=== PATIENT | female | born 1980 | race Caucasian/White ===

== ENCOUNTER 2020-10-24 07:31 | Outpatient (REF) | payer BC, MEDICAID, SELFPAY | END 2020-10-24 07:32 | disposition home or self-care (01) | LOC: HO.LAB 07:31 | PROVIDERS: PCP Internal Medicine; Visit Provider Internal Medicine | DX: Z13.89 Encounter for screening for other disorder (principal) ==

== ENCOUNTER 2020-12-15 08:07 | Outpatient (REF) | payer BC, MEDICAID, SELFPAY | END 2020-12-15 08:08 | disposition home or self-care (01) | LOC: HO.LAB 08:07 | PROVIDERS: PCP Internal Medicine; Visit Provider Internal Medicine | DX: Z88.9 Allergy status to unspecified drugs, medicaments and biological substances (principal) | CPT/HCPCS: 36415; 86003 ==

== ENCOUNTER 2021-02-02 08:13 | Outpatient (REF) | payer BC, MEDICAID, SELFPAY ==
[2021-02-02 09:39] LABS: TSH reflex Free T4 0.47 uIU/mL (0.32-4.0)
== END 2021-02-02 08:14 | disposition home or self-care (01) ==
LOC: HO.LAB 08:13
PROVIDERS: PCP Internal Medicine; Visit Provider Internal Medicine
DX: E03.9 Hypothyroidism, unspecified (principal)
CPT/HCPCS: 36415; 84443

== ENCOUNTER → 2021-06-27 13:35 | Outpatient (BNVA) | payer BC, MEDICAID, SELFPAY | PROVIDERS: PCP Internal Medicine; Referring Provider Internal Medicine; Visit Provider Internal Medicine | DX: I49.9 Cardiac arrhythmia, unspecified (principal); R00.2 Palpitations | CPT/HCPCS: 93005 ==

== ENCOUNTER 2022-04-03 16:49 | Outpatient (REF) | payer BC, MEDICAID, SELFPAY ==
--- NOTE | ~2022-04-03 | XR_ITS ---
EXAMINATION: XR CERVICAL SPINE CLINICAL INFORMATION: Pain COMPARISON: Radiographs cervical spine 12/31/2016. Chest radiograph 02/05/2019. TECHNIQUE: Cervical spine is imaged in 3 views. FINDINGS: There is straightening and mild reversal cervical lordosis with mild rightward tilting. The vertebral bodies are normal in height. The odontoid appears intact. There is no vertebral compression, destructive process, or prevertebral soft tissue swelling. There is mild disc narrowing at C5-C6. No erosive change. AP view shows widening and deformity mid to lateral right clavicle, new from chest radiograph 2019, presumably related to old healed trauma. Clinically correlate. XR/XR cervical spine 3V IMPRESSION: -Straightening and mild reversal cervical lordosis with mild rightward tilting. -Mild disc narrowing C5-C6. -Widening and deformity mid to lateral right clavicle extending beyond field of view, presumably related to old healed trauma. Clinically correlate.
--- NOTE | ~2022-04-03 | XR_ITS ---
EXAMINATION: XR THORACOLUMBAR SPINE CLINICAL INFORMATION: Pain COMPARISON: Dorsal spine 03/01/2013, cervical spine 04/03/2022, chest radiograph 02/05/2019 TECHNIQUE: Dorsal spine is imaged in 3 views. FINDINGS: Normal thoracic segmentation with 12 rib-bearing thoracic vertebrae of normal height and normal thoracic kyphosis. No vertebral compression, spondylolisthesis, or destructive process. No paraspinal soft tissue swelling. Again, there is mild degenerative disc changes mid thoracic spine approximately T7-T8. No erosive change. AP view again shows probable posttraumatic changes mid to lateral right clavicle extending beyond field of view, new from chest radiograph 2019. Clinically correlate. XR/XR thoracic spine 2V IMPRESSION: -No vertebral compression, spondylolisthesis, or destructive process. -Mild degenerative disc changes mid thoracic spine. -Probable old posttraumatic changes right clavicle extending beyond field of view, new from prior radiographs 2019. Clinically correlate.
--- NOTE | ~2022-04-03 | XR_ITS ---
EXAMINATION: XR SACRUM AND COCCYX CLINICAL INFORMATION: Low back pain COMPARISON: Lumbar radiographs 04/03/2022 TECHNIQUE: The sacrum and coccyx are imaged together in a total of 4 views to include both areas. FINDINGS: No fracture or destructive process. No diastases SI joints or pubis. Bony mineralization appears normal. No periostitis. No presacral soft tissue swelling appreciated. There is an IUD overlying the central pelvis. XR/XR sacrum coccyx min 2V IMPRESSION: Unremarkable examination.
--- NOTE | ~2022-04-03 | XR_ITS ---
EXAMINATION: XR LUMBOSACRAL SPINE CLINICAL INFORMATION: Low back pain COMPARISON: Dorsal spine 04/03/2022 and 03/01/2013 TECHNIQUE: Three views of the lumbosacral spine. FINDINGS: Normal lumbar segmentation with 5 nonrib-bearing lumbar vertebrae of normal height and normal lumbar lordosis. There is borderline loss of height superior endplate T12 with some degenerative changes T11-T12. No vertebral compression fracture, destructive process, or paraspinal soft tissue swelling. There is no lumbar disc narrowing or erosive changes. Borderline multilevel anterior vertebral. No spondylolisthesis. The SI joints and visualized sacrum are unremarkable. IUD overlying central pelvis. There are surgical clips right upper quadrant abdomen likely from prior cholecystectomy. XR/XR lumbar spine 2-3V IMPRESSION: -No lumbar vertebral compression, spondylolisthesis, or focal disc narrowing. -Borderline loss of height superior plate of T12 with degenerative disc changes T11-T12.
== END 2022-04-03 16:50 | disposition home or self-care (01) ==
LOC: HO.XRAY 16:49
PROVIDERS: PCP Internal Medicine; Visit Provider Physician Assistant
DX: M53.3 Sacrococcygeal disorders, not elsewhere classified (principal); M54.2 Cervicalgia; M54.6 Pain in thoracic spine; M54.50 Low back pain, unspecified
CPT/HCPCS: 72040; 72070; 72100; 72220

== ENCOUNTER → 2022-10-15 15:05 | Outpatient (BNVA) | payer BC, MEDICAID, SELFPAY | PROVIDERS: PCP Internal Medicine; Visit Provider Physician Assistant | DX: Z13.89 Encounter for screening for other disorder (principal) ==

== ENCOUNTER 2022-10-21 12:19 | Outpatient (REF) | payer BC, MEDICAID, SELFPAY ==
[2022-10-21 14:09] LABS: Appearance Urine Cloudy; Color Urine Yellow; Glucose Urine UA Negative (Negative); Leukocyte Esterase Urine Negative (Negative); Nitrite Urine Negative (Negative); PH 6.5 (5.0-9.0); Specific Gravity - Urine 1.015 (1.005-1.025); Urine Blood Negative (Negative); Urine Ketones Trace mg/dL (Negative); Urine Protein Negative (Neg-Trace)
[2022-10-21 14:11] LABS: MANUAL DIFF FLAG NO
[2022-10-21 14:24] LABS: Basophils Percent Auto 0.6 % (0-2); Eosinophils Absolute Auto 0.2 X10*3/uL (0.0-0.4); Eosinophils Percent Auto 2.6 % (0-4); Hematocrit 39.1 % (37.0-47.0); Imm Gran Abs Auto 0.02 X10*3/uL (0.00-0.03); Imm Gran Pct Auto 0.3 % (0.0-0.4); Lymphocytes Absolute Auto 1.9 X10*3/uL (1.2-4.9); Mean Corpuscular HGB Conc 33.2 g/dl (31.0-35.0); Mean Corpuscular Hemoglobin 28.6 pg (27.0-33.0); Mean Corpuscular Volume 85.9 fL (80.0-98.0); Mean Platelet Volume 10.3 fL (9.4-12.3); Monocytes Absolute Auto 0.5 X10*3/uL (0.1-1.2); Monocytes Percent Auto 8.1 % (2-11); Neutrophils Absolute Auto 3.7 x10*3/uL (2.0-8.3); Neutrophils Percent Auto 58.4 % (45-73); Platelet Count 247 X10*3/uL (160-400); Red Blood Count 4.55 X10*6/uL (4.20-5.50); Red Cell Distribution Width 12.6 % (11.0-16.0); White Blood Count 6.3 X10*3/uL (4.8-10.8)
[2022-10-21 14:52] LABS: Alanine Aminotransferase 13 U/L (0-31); Albumin Level 4.4 g/dL (3.5-5.0); Alkaline Phosphatase 36 U/L (39-117); Anion Gap 12 (12-20); Aspartate Amino Transferase 17 U/L (5-31); Bilirubin Total 1.4 mg/dL (0.0-1.0); Blood Urea Nitrogen 13 mg/dL (9-16); C Reactive Protein < 0.10 mg/dL (< or = 0.50); Calcium 9.4 mg/dL (8.4-10.2); Carbon Dioxide 25 mmol/L (22-29); Chloride 107 mmol/L (96-108); Cholesterol 177 mg/dL; Estimated Glomerular Filt Rate > 60; Glucose Fasting 84 mg/dL (60-99); Glucose Random 84 mg/dL (60-115); HDL Cholesterol 62 mg/dL; LDL Cholesterol Calculated 103 mg/dl; Sodium 140 mmol/L (135-145); Total Protein 6.9 g/dL (6.5-8.0); Triglycerides 62 mg/dL
[2022-10-21 15:07] LABS: Free T4 (Free Thyroxine) 1.27 ng/dL (0.71-1.85); Thyroid Stimulating Hormone 0.44 uIU/mL (0.32-4.0); Vitamin D 25-OH Total 33.5 ng/mL (>30)
[2022-10-21 15:27] LABS: Erythrocyte Sedimentation Rate 5 MM/HR (0-20)
[2022-10-24 12:39] LABS: Transglutaminase IgA <1.0 U/mL
[2022-10-25 14:54] LABS: Endomysial IgA Antibody Negative (Negative)
[2022-10-27 15:29] LABS: Vitamin D 25-OH, D2 <4 ng/mL; Vitamin D 25-OH, D3 34 ng/mL; Vitamin D 25-OH, Total 34 ng/mL (30-100)
== END 2022-10-21 12:20 | disposition home or self-care (01) ==
LOC: HO.WFDLDS 12:19
PROVIDERS: Internal Medicine; Visit Provider Physician Assistant
DX: Z00.00 Encounter for general adult medical examination without abnormal findings (principal); R30.0 Dysuria; E78.00 Pure hypercholesterolemia, unspecified; E03.9 Hypothyroidism, unspecified; K58.0 Irritable bowel syndrome with diarrhea; K58.1 Irritable bowel syndrome with constipation; E55.9 Vitamin D deficiency, unspecified; K59.09 Other constipation
CPT/HCPCS: 36415; 80053; 80061; 81003; 82306; 84439; 84443; 85025; 85652; 86140; 86231; 86364

== ENCOUNTER 2022-10-22 12:18 | Outpatient (REF) | payer BC, MEDICAID, SELFPAY | END 2022-10-22 12:19 | disposition home or self-care (01) | LOC: HO.WFDLNP 12:18 | PROVIDERS: Visit Provider Physician Assistant | DX: Z13.89 Encounter for screening for other disorder (principal) | CPT/HCPCS: 83993; 87493; 87507 ==

== ENCOUNTER 2023-08-05 17:07 | Outpatient (AMB) | payer BC, MEDICAID, SELFPAY ==
[2023-08-05 17:10] VITALS: BP 116/72; PULSE 83; O2SAT 98; BMI 23.4
--- NOTE | 2023-08-05 17:10 | MHC.PC.OV ---
Vital Signs 08/05/23 17:10 Height 5 ft 8 in Weight 154 lb BMI 23.4 BP 116/72 Blood Pressure Location Lt brachial Position Sitting Pulse 83 Pulse Source Pulse Oximeter Pulse Oximetry (%) 98 Oxygen Delivery Method Room Air Intake Visit Reasons: pe Airplane Flight Attendant Required: No Accompanied by: Self / Same As Patient Allergies adhesive tape [ADHESIVE TAPE] Allergy (Severe, Verified 08/05/23 17:19) HIVES latex Allergy (Severe, Verified 08/05/23 17:19) throat swelling/hives prednisone Adverse Reaction (Severe, Verified 08/05/23 17:19) psychosis, extreme aggitation pumpkin Adverse Reaction (Unknown, Verified 08/05/23 17:19) unknown Medication List - Last Reconciled 08/05/23 by Ron Irving MD bisacodyl (Dulcolax (bisacodyl)) 10 mg (2 x 5 mg) PO ONCE 1 day bupropion HCl 200 mg PO BID levothyroxine 50 mcg PO DAILY 90 days phentermine 37.5 mg PO DAILY 30 days polyethylene glycol 3350 (Miralax) 238 grams PO ONCE 1 day topiramate 25 mg PO BEDTIME 30 days Tobacco use date assessed: 08/05/23 Dental Screening Dental Screen Date: 08/05/23 Did you have a dental visit in the last 12 months?: Yes Did you have a dental problem in the last 6 months where you did not have access to dental care?: No Was dental information given to patient?: Patient has dentist HPI pe HPI Details Patient comes in today for her annual physical examination States that she currently feels okay Is still working from home but recently joined a work out program where she has a treadmill under her work desk and she can do her work out routine while she is working (from home) at her desk at the same time She has been able to lose a lot of weight as well since her last visit with the Rx for Topiramate and Adipex that we have been prescribing for her - states that she does not take these on an everyday basis She denies any headaches or dizziness Denies any chest pains, no SOB No nausea/vomiting; still has occasional cramping pain most often over her lower abdomen that are often relieved after bowel movements No change in bowel habits noted - still has on and off diarrhea/loose stools that occur mostly after she eats in the morning States that she has tried to see if she can isolate anything in particular that she was eating or drinking, even to the point wherein she skipped her morning coffee for a while to see if it will make a difference (but it did not) Denies any acute urinary symptoms Would also like to request for a referral to dermatology to help her check out a few lesions on her face between her right eye and her nose Was not able to get her previously ordered follow up labs done prior to her appointment today States that she was seen by GI a few months ago this spring and was advised that they were behind scheduling but she will be contacted as soon as she is scheduled for her colonoscopy but she has not yet heard back from GI so far States that she last had her pap smear and gynecology exam done last year in May 2022 and recalls being told they she will just need to get those rechecked every 2 to 3 years Her last mammogram was done at [facility] last July 2022 (08/20/22) [facility] Medical History (Updated 08/06/23 @ 03:54 by Ron Irving MD) Anxiety and depression Elevated bilirubin Overweight (BMI 25.0-29.9) Irritable bowel syndrome (IBS) Mass of right inguinal region Sleep disorder Depression Vitamin D deficiency Pure hypercholesterolemia Acquired hypothyroidism Systemic lupus erythematosus Surgical History History of pleomorphic adenoma of salivary gland History of sleeve gastrectomy History of laparoscopic cholecystectomy History of section Family History Father Hypertension Mother Medical history unknown Paternal Grandmother Cancer Paternal Uncle Cancer Social History Housing: House Alcohol intake: never Patient Tobacco Use Status: Former Tobacco user Tobacco use type: Cigarette e-Cigarette/Vaping Use: Currently Using Second Hand Smoke Exposure: No service: No Current occupational status: employed Current occupational exposures/hazards: No Cognitive needs: No Hearing needs: No Vision needs: No Questionnaire PHQ-9 Over the last 2 weeks, how often have you been bothered by any of the following problems? 1. Little interest or pleasure in doing things: not at all 2. Feeling down, depressed, or hopeless: not at all 3. Trouble falling or staying asleep, or sleeping too much: not at all 4. Feeling tired or having little energy: not at all 5. Poor appetite or overeating: not at all 6. Feeling bad about yourself - or that you are a failure or have let yourself or your family down: not at all 7. Trouble concentrating on things, such as reading the newspaper or watching television: not at all 8. Moving or speaking so slowly that other people could have noticed. Or the opposite - being so fidgety or restless that you have been moving around a lot more than usual: not at all 9. Thoughts that you would be better off or of hurting yourself in some way: not at all Total score: 0 Depression Screening Interpretation: Negative Depression Screening Done: Yes [id number] - PHQ-9 Billing: Yes Source: Developed by Drs. Channing Zapata, Hina Clayton, Noe Molina and colleagues, with an educational antoine from [employer]. Thrive Questionnaire Date Thrive assessed: 08/05/23 I am a: Patient What is your living situation today?: I have a steady place to live Within the past 12 months, did the food you bought not last and you didn't have the money to get more?: Never true Within the past 12 months, did you worry whether your food would run out before you got money to buy more?: Never true Do you have trouble paying for medicines?: No Do you have trouble getting transportation to medical appointments?: No Do you have trouble paying your heating and electricity bill?: No Do you have trouble taking care of your child, family member or friend?: No Do you have trouble with day-to-day activities such as bathing, preparing meals, shopping, managing finances, etc.?: No Are you currently unemployed and looking for a job?: No Are you interested in more education?: No Please select the resources that you would like help with: None Currently or been in a relationship where the following occur: no concerns reported AUDIT C Alcohol Use Questionnaire (AUDIT-C) 1. How often do you have a drink containing alcohol?: Monthly or less 2. How many drinks containing alcohol do you have on a typical day when you are drinking?: 1 or 2 Total Score: 1 Score Reviewed/Action Taken: Yes MONSERRAT-7 AMB Questionnaire MONSERRAT-7 Date MONSERRAT - 7 assessed: 08/05/23 Feeling nervous, anxious, or on edge: 0 = Not at all Not being able to stop or control worryin = Not at all Worrying too much about different things: 0 = Not at all Trouble relaxin = Not at all Being so restless that it is hard to sit still: 0 = Not at all Becoming easily annoyed or irritable: 0 = Not at all Feeling afraid as if something awful might happen: 0 = Not at all Total MONSERRAT-7 score (0-4 normal; 5-9 mild; 10-14 moderate; 15-21 severe): 0 Source: Developed by Drs. Channing Zapata, Hina Clayton, Noe Molina and colleagues, with an educational antoine from [employer]. Review of Systems Const Denies chills, Denies fatigue, Denies fever(s), Denies headache(s) and Denies malaise Eyes Denies blurry vision, Denies change in vision, Denies irritation and Denies itchy eyes ENT Denies dysphagia, Denies dizziness, Denies otalgia, Denies headache(s), Reports neck pain (on and off) and Denies odynophagia Card Denies chest pain, Denies rapid heart rate, Denies irregular heart rhythm, Denies palpitations and Denies dyspnea Resp Denies chest congestion, Denies cough, Denies dyspnea and Denies wheezing GI Reports abdominal pain (intermittent cramping pain due to her IBS), Denies bloating, Denies constipation, Denies dysphagia, Denies heartburn, Reports diarrhea (on and off - due to IBS), Reports loose stools (often - due to IBS and cholecystectomy), Denies nausea, Denies odynophagia and Denies vomiting Denies hematuria, Denies urinary frequency, Denies dysuria, Denies urinary incontinence and Denies urinary urgency Musc Reports back pain (on and off), Reports arthralgias (on and off - (+) lupus), Denies joint swelling and Reports neck pain (on and off) Skin/Breast Denies breast pain, Denies breast mass, Denies change in pigmentation, Reports lesions (few scattered lesions between her right eye and nose), Denies rash and Denies unusual bruising Neuro Denies dizziness, Denies headache(s) and Denies paresthesias Psych Denies depression and Reports difficulty concentrating Endo Denies fatigue and Denies palpitations Arron/Lymph Denies easy bruising Aller/Immun Denies itchy eyes and Denies wheezing Physical exam (Primary Care) Vital Signs: Last Vital Signs Pulse 83 08/05/23 17:10 BP 116/72 08/05/23 17:10 Pulse Ox 98 08/05/23 17:10 Oxygen Delivery Method Room Air 08/05/23 17:10 BMI result Body Mass Index 23.4 Tobacco/Smoking Status: Tobacco use Status Tobacco use date assessed 08/05/23 08/05/23 17:15 Patient Tobacco Use Status Former Tobacco user 08/05/23 17:15 Tobacco use type Cigarette 08/05/23 17:15 e-Cigarette/Vaping Use Currently Using 08/05/23 17:15 PHQ-9: PHQ-9 Score PHQ-9: Total score 0 08/05/23 17:24 Depression Screening Interpretation: Negative Thrive Assessment: Date of Thrive Assessment Date Thrive assessed 08/05/23 08/05/23 17:15 Currently or been in a relationship where the following occur: no concerns reported Const General: no acute distress, alert and awake Orientation/consciousness: patient oriented x3 HENMT Head: Yes normocephalic and Yes atraumatic Ears: external ears normal, TM's normal bilaterally and EAC's normal General nose exam: No nasal discharge present Face and sinus: Yes normal facial exam and Yes sinuses nontender Teeth and gingiva: dentition normal Throat: Yes posterior oropharynx normal and Yes tonsils normal (no TP congestion) Eyes Eyelids: Yes eyelids normal Conjunctivae: conjunctivae normal Pupils: Equal, round and reactive pupils present EOM: EOMs intact bilaterally Neck Neck: Yes no lymphadenopathy and Yes supple Thyroid: Thyroid normal Resp Auscultation: clear to auscultation bilaterally, no rales and no wheezes Cardio Rate: regular rate Rhythm: regular rhythm Heart sounds: no murmurs GI Palpation (GI): Soft to palpation, nontender and No hepatosplenomegaly present Auscultation: normal bowel sounds General: Yes no CVA tenderness Back/Spine/Pelvis Back: no CVA tenderness Cervical Spine: Cervical spine tenderness (mild) Thoracic/Lumbar Spine: lumbar spinal tenderness (mild) Skin Lesions: lesion noted (few slightly raised lesions between the right eye and the nose) Rashes: no rashes Neuro General: patient oriented x3, moves all extremities, no focal motor deficits and CN's II-XI intact bilaterally Cranial nerves: Yes Equal, round and reactive pupils present Cognition (Neuro): normal cognition Gait exam (Neuro): Normal gait present Extrem General: Yes no clubbing, cyanosis or edema Assessment and Plan Assessment & Plan (1) Annual physical exam: Code(s): Z00.00 - Encounter for general adult medical examination without abnormal findings Plan: Check labs SINGH - she can just use her previous orders (updated) for her lab draw She is encouraged to check back with GI [facility] about her screening colonoscopy being scheduled - was reportedly advised months ago that they will contact her again to schedule her for the procedure but she has yet to hear from them again She is up-to-date with her annual mammogram and gynecology exam/pap smear (2) Systemic lupus erythematosus: Code(s): M32.9 - Systemic lupus erythematosus, unspecified Qualifiers: Systemic lupus erythematosus type: unspecified Systemic lupus erythematosus organ involvement: unspecified Qualified Code(s): M32.9 - Systemic lupus erythematosus, unspecified Plan: Patient's lupus remains dormant and per rheumatology, no intervention is indicated at present? Follow-up with rheumatology (Dr. Oliver in [place]) as scheduled Patient continues to work remotely from home, which she states has helped her a lot in terms of her symptoms (3) Acquired hypothyroidism: Code(s): E03.9 - Hypothyroidism, unspecified Plan: TFTs done back in September 2022 came out normal; will have her recheck her TFTs for follow up Continue Levothyroxine 50 mcg QD (4) Pure hypercholesterolemia: Code(s): E78.00 - Pure hypercholesterolemia, unspecified Plan: Reinforced low cholesterol diet Will recheck her fasting lipids for follow up (5) Irritable bowel syndrome (IBS): Comment: Several loose stools daily abdominal cramping-diagnosed IBS however needs further evaluation to rule out underlying causes to include IBD. Will get labs stool studies for further eval Code(s): K58.9 - Irritable bowel syndrome without diarrhea Qualifiers: Irritable bowel syndrome type: unspecified Qualified Code(s): K58.9 - Irritable bowel syndrome without diarrhea Plan: Still has recurrent/frequent loose stools although this is also partly due to cholecystectomy years ago Patient reminded that her diet and emotional state (anxiety) can have a lot to do with her symptoms Work ups done for celiac disease in the past came out negative Follow up with GI as scheduled States that she was supposed to be scheduled for a colonoscopy soon but she has not yet heard back from GI regarding this - is encouraged to try contacting them as soon as she can to inquire about this (6) Vitamin D deficiency: Code(s): E55.9 - Vitamin D deficiency, unspecified Plan: Continue OTC Vitamin D supplement - recommend at least 2000 units (50 mcg) QD (7) Facial skin lesion: Code(s): L98.9 - Disorder of the skin and subcutaneous tissue, unspecified Plan: (+) small and slightly raised lesions mostly in between her right eye and her nose Per request, will refer her to dermatology for further evaluation and management (8) Attention deficit: Code(s): R41.840 - Attention and concentration deficit Plan: Patient reportedly noticed some improvement in her concentration when she takes Phentermine for weight loss Recalls being diagnosed with ADD or ADHD when she was younger (is not sure if this was ever official) [facility] and management and to help assess for any concentration deficits - we have not yet received any report from the [facility] so far regarding this (9) Anxiety and depression: Code(s): F41.9 - Anxiety disorder, unspecified; F32.A - Depression, unspecified Plan: Continue Bupropion 200 mg BID - patient asked to be started back on this a couple of months ago in May 2023 due to increasing anxiety and depression and states that she is currently again doing better since she was started back on her Rx Follow up with psychiatry as scheduled (10) Overweight (BMI 25.0-29.9): Comment: S/P gastric sleeve by Dr. Tran in 2018 Code(s): E66.3 - Overweight Plan: Patient has been able to lose a lot of weight over the past 6 months on both Phentermine 37.5 mg Q AM as needed and Topiramate 25 mg Q HS and she is currently no longer overweight, categorically speaking Is advised that she should monitor her weight closely and should not continue on her current weight loss Rx if she continues to lose weight and her weight drops under 140 pounds Plan Follow up in 6 months Orders: Orders Thyroid Stimulating Hormone 08/05/23 E03.9 - Hypothyroidism, unspecified Free T4 (Free Thyroxine) 08/05/23 E03.9 - Hypothyroidism, unspecified Referrals Dermatology Referral L98.9 - Disorder of the skin and subcutaneous tissue, unspecified Coding Level of Care Code Est Pt Prev Care 40-64y(24064) Diagnoses Annual physical exam Z00.00 Systemic lupus erythematosus, unspecified SLE type, unspecified organ involvement status M32.9 Systemic lupus erythematosus type: unspecified Systemic lupus erythematosus organ involvement: unspecified Acquired hypothyroidism E03.9 Pure hypercholesterolemia E78.00 Irritable bowel syndrome, unspecified type K58.9 Irritable bowel syndrome type: unspecified Vitamin D deficiency E55.9 Facial skin lesion L98.9 Attention deficit R41.840 Anxiety and depression F41.9; F32.A Overweight (BMI 25.0-29.9) E66.3
== END 2023-08-05 17:35 | disposition home or self-care (01) ==
LOC: HO.HMGH 17:07
PROVIDERS: PCP Internal Medicine; Visit Provider Internal Medicine
DX: Z00.00 Encounter for general adult medical examination without abnormal findings (principal); M32.9 Systemic lupus erythematosus, unspecified; E03.9 Hypothyroidism, unspecified; E78.00 Pure hypercholesterolemia, unspecified; K58.9 Irritable bowel syndrome, unspecified; E55.9 Vitamin D deficiency, unspecified; L98.9 Disorder of the skin and subcutaneous tissue, unspecified; R41.840 Attention and concentration deficit; F41.9 Anxiety disorder, unspecified; F32.A Depression, unspecified; E66.3 Overweight
CPT/HCPCS: 99396

== ENCOUNTER 2023-12-17 10:26 | Outpatient (AMB) | payer BC, SELFPAY ==
--- NOTE | 2023-12-17 10:28 | A.OFFPC_ITS ---
Intake Visit Reasons: Walk In 12/03 influenza/ ear drum Intake Note: Telehealth follow-up visit, the patient reports a prolonged struggle with influenza A, lasting for 16 days along with associated flu symptoms. On December 08, they received a re-evaluation and were diagnosed with a double ear infection. They are presently receiving treatment with amoxicillin. However, the patient persists in experiencing coughing and suspects the possibility of a perforated eardrum. Special Officer Required: No Information Interpreted: non-clinical & clinical Resist Coater Developer: Not Required per policy Accompanied by: Self / Same As Patient Allergies adhesive tape [ADHESIVE TAPE] Allergy (Severe, Verified 12/17/23 11:07) HIVES latex Allergy (Severe, Verified 12/17/23 11:07) throat swelling/hives prednisone Adverse Reaction (Severe, Verified 12/17/23 11:07) psychosis, extreme aggitation pumpkin Adverse Reaction (Unknown, Verified 12/17/23 11:07) unknown Medication List - Last Reconciled 12/17/23 by Ron Irving MD bisacodyl (Dulcolax (bisacodyl)) 10 mg (2 x 5 mg) PO ONCE 1 day bupropion HCl SR 200 mg PO BID levothyroxine 50 mcg PO DAILY 90 days phentermine 37.5 mg PO DAILY 30 days polyethylene glycol 3350 (Miralax) 238 grams PO ONCE 1 day topiramate 25 mg PO BEDTIME 30 days Tobacco use date assessed: 12/17/23 Dental Screening Dental Screen Date: 12/17/23 Did you have a dental visit in the last 12 months?: Yes Did you have a dental problem in the last 6 months where you did not have access to dental care?: No Was dental information given to patient?: Patient has dentist HPI Walk In 12/03 influenza/ ear drum HPI Details Patient's follow-up visit / consultation today is done over the phone - this is a Telehealth visit Patient's current medications have been reviewed and verified with patient and / or caregiver / proxy and have been updated accordingly in the medication list States that she tested positive for influenza A about 16 days ago when she went to a local urgent care center ([facility] in [place]) for increasing cough and congestion over a couple of days States that she has been dealing with increased and lingering cough and congestion / flu-like symptoms since Relates that she went back to the walk-in clinic last week on 12/09/2023 for reevaluation as her ear felt blocked up then and she was then diagnosed with bilateral ear infection (otitis) and was started on Amoxicillin 875 mg BID x 10 days, which she is currently still on and finishing up States that she is currently feeling a lot better although she still has recurrent cough and experiencing some chest congestion and her ear still feels blocked up Recalls being advised at the walk-in clinic that she does not have any perforated eardrum but she is wondering if this is correct as her ear still feels blocked up and she can hardly hear out of it She denies any fever or sore throat at present Denies any headaches or dizziness Denies any chest pains States that she still has some mild/lingering chest congestion and still has on and off coughing but she denies any SOB No nausea/vomiting, no abdominal pain No change in bowel habits noted [facility] Medical History Anxiety and depression Elevated bilirubin Overweight (BMI 25.0-29.9) Irritable bowel syndrome (IBS) Mass of right inguinal region Sleep disorder Depression Vitamin D deficiency Pure hypercholesterolemia Acquired hypothyroidism Systemic lupus erythematosus Surgical History History of pleomorphic adenoma of salivary gland History of sleeve gastrectomy History of laparoscopic cholecystectomy History of section Family History Father Hypertension Mother Medical history unknown Paternal Grandmother Cancer Paternal Uncle Cancer Social History Housing: House Alcohol intake: never Patient Tobacco Use Status: Former Tobacco user Tobacco use type: Cigarette e-Cigarette/Vaping Use: Currently Using Second Hand Smoke Exposure: No service: No Current occupational status: employed Current occupational exposures/hazards: No Cognitive needs: No Hearing needs: No Vision needs: No Questionnaire PHQ-9 Over the last 2 weeks, how often have you been bothered by any of the following problems? 1. Little interest or pleasure in doing things: not at all 2. Feeling down, depressed, or hopeless: not at all 3. Trouble falling or staying asleep, or sleeping too much: not at all 4. Feeling tired or having little energy: not at all 5. Poor appetite or overeating: not at all 6. Feeling bad about yourself - or that you are a failure or have let yourself or your family down: not at all 7. Trouble concentrating on things, such as reading the newspaper or watching television: not at all 8. Moving or speaking so slowly that other people could have noticed. Or the opposite - being so fidgety or restless that you have been moving around a lot more than usual: not at all 9. Thoughts that you would be better off or of hurting yourself in some way: not at all Total score: 0 Depression Screening Interpretation: Negative Depression Screening Done: Yes 11423 - PHQ-9 Billing: Yes Source: Developed by Drs. Channing Zapata, Hina Clayton, Noe Molina and colleagues, with an educational antoine from [employer]. Thrive Questionnaire Date Thrive assessed: 12/17/23 I am a: Patient What is your living situation today?: I have a steady place to live Within the past 12 months, did the food you bought not last and you didn't have the money to get more?: Never true Within the past 12 months, did you worry whether your food would run out before you got money to buy more?: Never true Do you have trouble paying for medicines?: No Do you have trouble getting transportation to medical appointments?: No Do you have trouble paying your heating and electricity bill?: No Do you have trouble taking care of your child, family member or friend?: No Do you have trouble with day-to-day activities such as bathing, preparing meals, shopping, managing finances, etc.?: No Are you currently unemployed and looking for a job?: No Are you interested in more education?: No Please select the resources that you would like help with: None Currently or been in a relationship where the following occur: no concerns reported THRIVE Score: 0 AUDIT C Alcohol Use Questionnaire (AUDIT-C) 1. How often do you have a drink containing alcohol?: Monthly or less 2. How many drinks containing alcohol do you have on a typical day when you are drinking?: 1 or 2 3. How often do you have six or more drinks on one occasion?: Never Total Score: 1 Score Reviewed/Action Taken: Yes MONSERRAT-7 AMB Questionnaire MONSERRAT-7 Date MONSERRAT - 7 assessed: 12/17/23 Feeling nervous, anxious, or on edge: 0 = Not at all Not being able to stop or control worryin = Not at all Worrying too much about different things: 0 = Not at all Trouble relaxin = Not at all Being so restless that it is hard to sit still: 0 = Not at all Becoming easily annoyed or irritable: 0 = Not at all Feeling afraid as if something awful might happen: 0 = Not at all Total MONSERRAT-7 score (0-4 normal; 5-9 mild; 10-14 moderate; 15-21 severe): 0 Source: Developed by Drs. Channing Zapata, Hina Clayton, Noe Molina and colleagues, with an educational antoine from [employer]. MONSERRAT-7 Assessment Billing MONSERRAT-7 Assessment Tool: MONSERRAT-7 Assessment 67137 Review of Systems Const Denies chills, Reports fatigue, Denies fever(s) and Denies headache(s) ENT Denies dysphagia, Denies dizziness, Denies otalgia (but ear still feels blocked up), Denies headache(s), Reports nasal congestion (mild), Denies neck pain, Denies odynophagia, Denies sinus pain and Denies sore throat Card Denies chest pain, Denies palpitations and Denies dyspnea Resp Reports chest congestion (mild), Reports cough (on and off), Denies dyspnea and Denies wheezing GI Denies abdominal pain, Denies constipation, Denies dysphagia, Denies heartburn, Denies diarrhea, Denies nausea, Denies odynophagia and Denies vomiting Denies nocturia, Denies dysuria and Denies urinary urgency Musc Denies neck pain Skin/Breast Denies rash Neuro Denies dizziness and Denies headache(s) Endo Reports fatigue and Denies palpitations Aller/Immun Denies wheezing Physical exam (Primary Care) Vital Signs: Physical examination is not performed as visit / consultation today is done over the phone - Telehealth visit All physical findings indicated here, if present, are as per patient's and / or caregivers / proxy's report Tobacco/Smoking Status: Tobacco use Status Tobacco use date assessed 12/17/23 12/17/23 10:34 Patient Tobacco Use Status Former Tobacco user 12/17/23 10:34 Tobacco use type Cigarette 12/17/23 10:34 e-Cigarette/Vaping Use Currently Using 12/17/23 10:34 PHQ-9: PHQ-9 Score PHQ-9: Total score 0 12/17/23 10:34 Depression Screening Interpretation: Negative Thrive Assessment: Date of Thrive Assessment Date Thrive assessed 12/17/23 12/17/23 10:34 Currently or been in a relationship where the following occur: no concerns reported Telehealth Telehealth Telehealth Platform: Telephone Location of provider rendering services: practice address Location of patient: address on file Patient Identification confirmed using: Name, : Yes Telehealth method: voice only Patient verbally consented to treatment: Yes Patient verbally consented to billing insurance company: Yes Patient informed of any privacy concerns related to visit: Yes Minutes spent on Phone/Video with Pt.: 16 Assessment and Plan Assessment & Plan (1) Otitis: Code(s): H66.90 - Otitis media, unspecified, unspecified ear Qualifiers: Laterality: bilateral Qualified Code(s): H66.93 - Otitis media, unspecified, bilateral (2) Respiratory tract infection: Code(s): J98.8 - Other specified respiratory disorders Plan Patient reports testing positive for Influenza A about 16 days ago and states that most of her respiratory symptoms have been gradually clearing up although she presently still has some lingering cough and congestion - takes OTC Delsym and Benadryl PRN with relief of symptoms She is currently finishing up her prescribed Amoxicillin 875 mg BID x 10 days and states that she has a couple of days of the antibiotics left but is concerned that her ear still feels blocked up and that she may have a perforated TM Have advised patient that the walk-in clinic have told her that she does not have any perforated eardrum when she was last checked out so she most likely does NOT have TM perforation and her ear sensation (congestion) is likely a result of her ongoing ear infection and the presence of fluid in her ear, which may take a while to clear up even after she finishes her Abx Tx Will extend her Abx for another 4 days to complete a full 2 weeks of Tx and advised that as long as she is feeling better overall and she does not think her symptoms are getting worse, the ear symptoms (as mentioned above) can take longer to clear up completely Follow up as scheduled in January 2024 Medications: New amoxicillin Continue antibiotics x 4 MORE DAYS 875 mg PO BID 4 days 8 tabs 0RF Coding Level of Care Code Tele Est Pt Level 3 (99960) Diagnoses Otitis of both ears H66.93 Laterality: bilateral Respiratory tract infection J98.8 Additional Codes MONSERRAT-7 Assessment Billing - MONSERRAT-7 Assessment Tool: MONSERRAT-7 Assessment 42568 ([id number])
== END 2023-12-17 11:25 | disposition home or self-care (01) ==
LOC: HO.HMGH 10:26
PROVIDERS: PCP Internal Medicine; Visit Provider Internal Medicine
DX: J98.8 Other specified respiratory disorders (principal); H66.93 Otitis media, unspecified, bilateral
CPT/HCPCS: 99442

== ENCOUNTER 2024-02-10 16:52 | Outpatient (AMB) | payer BC, SELFPAY ==
[2024-02-10 16:54] VITALS: BP 114/72; PULSE 70; O2SAT 98; BMI 25.2
--- NOTE | 2024-02-10 16:54 | A.OFFPC_ITS ---
Vital Signs 02/10/24 16:54 Height 5 ft 8 in Weight 166 lb 0.4 oz BMI 25.2 BP 114/72 Blood Pressure Location Lt brachial Position Sitting Pulse 70 Pulse Source Pulse Oximeter Pulse Oximetry (%) 98 Oxygen Delivery Method Room Air Intake Visit Reasons: 6 month f/u Network Management Specialist Required: No Allergies adhesive tape [ADHESIVE TAPE] Allergy (Severe, Verified 02/10/24 17:24) HIVES latex Allergy (Severe, Verified 02/10/24 17:24) throat swelling/hives prednisone Adverse Reaction (Severe, Verified 02/10/24 17:24) psychosis, extreme aggitation pumpkin Adverse Reaction (Unknown, Verified 02/10/24 17:24) unknown Medication List - Last Reconciled 02/10/24 by Ron Irving MD bisacodyl (Dulcolax (bisacodyl)) 10 mg (2 x 5 mg) PO ONCE 1 day levothyroxine 50 mcg PO DAILY 90 days phentermine 37.5 mg PO DAILY 30 days polyethylene glycol 3350 (Miralax) 238 grams PO ONCE 1 day topiramate 25 mg PO BEDTIME 30 days Tobacco use date assessed: 12/17/23 Dental Screening Dental Screen Date: 12/17/23 Did you have a dental visit in the last 12 months?: Yes Did you have a dental problem in the last 6 months where you did not have access to dental care?: No Was dental information given to patient?: Patient has dentist HPI 6 month f/u HPI Details Patient comes in today for her follow up visit States that she feels okay Is happy that she has been able to continue working from home Relates that she had a bout of ear infection and respiratory infection a couple of months ago and she thinks she tested positive for RSV States that her symptoms have mostly cleared up but she still feels that there is some fluid lingering in her left ear as she can feel it when she is turning her head or when she lies down on her left side Is wondering if this is because her ear infection did not get cleared up completely with the antibiotics that she took and if her ear infection is going to come back She denies any headaches or dizziness; denies any fever or sore throat lately Denies any chest pains, no SOB No nausea/vomiting, no abdominal pain No change in bowel habits noted Adds that she has been experiencing a lot of hot flashes lately - is wondering if these are indicating that she is going into menopause soon She had her follow up labs done at [facility] few months ago and would like to go over the results of her labs back then [facility] Medical History Anxiety and depression Elevated bilirubin Overweight (BMI 25.0-29.9) Irritable bowel syndrome (IBS) Mass of right inguinal region Sleep disorder Depression Vitamin D deficiency Pure hypercholesterolemia Acquired hypothyroidism Systemic lupus erythematosus Surgical History History of pleomorphic adenoma of salivary gland History of sleeve gastrectomy History of laparoscopic cholecystectomy History of section Family History Father Hypertension Mother Medical history unknown Paternal Grandmother Cancer Paternal Uncle Cancer Social History Housing: House Alcohol intake: never Patient Tobacco Use Status: Former Tobacco user Tobacco use type: Cigarette e-Cigarette/Vaping Use: Currently Using Second Hand Smoke Exposure: No service: No Current occupational status: employed Current occupational exposures/hazards: No Cognitive needs: No Hearing needs: No Vision needs: No Questionnaire Thrive Questionnaire Date Thrive assessed: 12/17/23 AUDIT C Alcohol Use Questionnaire (AUDIT-C) 1. How often do you have a drink containing alcohol?: Monthly or less 2. How many drinks containing alcohol do you have on a typical day when you are drinking?: 1 or 2 3. How often do you have six or more drinks on one occasion?: Never Total Score: 1 Score Reviewed/Action Taken: Yes MONSERRAT-7 AMB Questionnaire MONSERRAT-7 Date MONSERRAT - 7 assessed: 12/17/23 Feeling nervous, anxious, or on edge: 0 = Not at all Not being able to stop or control worryin = Not at all Worrying too much about different things: 0 = Not at all Trouble relaxin = Not at all Being so restless that it is hard to sit still: 0 = Not at all Becoming easily annoyed or irritable: 0 = Not at all Feeling afraid as if something awful might happen: 0 = Not at all Total MONSERRAT-7 score (0-4 normal; 5-9 mild; 10-14 moderate; 15-21 severe): 0 Source: Developed by Drs. Channing Zapata, Hina Clayton, Noe Molina and colleagues, with an educational antoine from [employer]. MONSERRAT-7 Assessment Billing MONSERRAT-7 Assessment Tool: MONSERRAT-7 Assessment 27138 Review of Systems Const Denies chills, Reports fatigue, Denies fever(s) and Denies headache(s) ENT Denies dysphagia, Denies dizziness, Denies otalgia (but ears still feel like there is fluid in them), Denies headache(s), Denies nasal congestion, Reports neck pain (mild, at times), Denies odynophagia and Denies sore throat Card Denies chest pain, Denies palpitations and Denies dyspnea Resp Denies cough, Denies dyspnea and Denies wheezing GI Denies abdominal pain, Denies constipation, Denies dysphagia, Denies heartburn, Denies diarrhea, Denies nausea, Denies odynophagia and Denies vomiting Denies nocturia, Denies dysuria and Denies urinary urgency Musc Reports back pain (mild, on and off), Reports myalgias (at times) and Reports neck pain (mild, at times) Skin/Breast Denies rash Neuro Denies dizziness and Denies headache(s) Endo Details: on and off hot flashes lately Reports fatigue and Denies palpitations Aller/Immun Denies wheezing Physical exam (Primary Care) Vital Signs: Last Vital Signs Pulse 70 02/10/24 16:54 BP 114/72 02/10/24 16:54 Pulse Ox 98 02/10/24 16:54 Oxygen Delivery Method Room Air 02/10/24 16:54 BMI result Body Mass Index 25.2 Tobacco/Smoking Status: Tobacco use Status Tobacco use date assessed 12/17/23 02/10/24 16:59 Patient Tobacco Use Status Former Tobacco user 02/10/24 16:59 Tobacco use type Cigarette 02/10/24 16:59 e-Cigarette/Vaping Use Currently Using 02/10/24 16:59 Thrive Assessment: Date of Thrive Assessment Date Thrive assessed 12/17/23 02/10/24 16:59 Const General: no acute distress and alert HENMT Ears: TM's normal bilaterally (but there appears to be a small amount of fluid behind the left TM) and EAC's normal Throat: Yes posterior oropharynx normal and Yes tonsils normal (no TP congestion) Neck Neck: Yes no lymphadenopathy and Yes supple Thyroid: Thyroid normal Resp Auscultation: clear to auscultation bilaterally, no rales and no wheezes Cardio Rate: regular rate Rhythm: regular rhythm Heart sounds: no murmurs GI Palpation (GI): Soft to palpation and nontender Auscultation: normal bowel sounds General: Yes no CVA tenderness Back/Spine/Pelvis Back: no CVA tenderness Cervical Spine: Cervical spine tenderness (mild) Thoracic/Lumbar Spine: lumbar spinal tenderness (mild) Skin Rashes: no rashes Extrem General: Yes no clubbing, cyanosis or edema Assessment and Plan Assessment & Plan (1) Systemic lupus erythematosus: Code(s): M32.9 - Systemic lupus erythematosus, unspecified Qualifiers: Systemic lupus erythematosus type: unspecified Systemic lupus erythematosus organ involvement: unspecified Qualified Code(s): M32.9 - Systemic lupus erythematosus, unspecified Plan: Patient's lupus remains dormant and per rheumatology, no intervention is indicated at present? Follow-up with rheumatology (Dr. Oliver in [place]) as scheduled Patient continues to work remotely from home, which she states has helped her a lot in keeping her symptoms manageable (2) Acquired hypothyroidism: Code(s): E03.9 - Hypothyroidism, unspecified Plan: TFTs done back in September 2023 came out normal Continue Levothyroxine 50 mcg QD although patient now admits that she has been taking her Levothyroxine irregularly as she would sometimes forget to take it for a few days She also admits to taking it often in the morning with her coffee (with cream) as she has reportedly never been advised to take it on an empty stomach and not to eat or drink anything for 30 minutes afterwards Have advised and instructed her today to start taking her Levothyroxine correctly and daily and will have her recheck her TFTs in 6 months for follow up (3) Pure hypercholesterolemia: Code(s): E78.00 - Pure hypercholesterolemia, unspecified Plan: Results of her labs done at [facility] back in September 2023 reviewed and discussed with patient Reinforced low cholesterol diet Will recheck her fasting lipids and labs in 6 months for follow up (4) Irritable bowel syndrome (IBS): Comment: Several loose stools daily abdominal cramping-diagnosed IBS however needs further evaluation to rule out underlying causes to include IBD. Will get labs stool studies for further eval Code(s): K58.9 - Irritable bowel syndrome without diarrhea Qualifiers: Irritable bowel syndrome type: unspecified Qualified Code(s): K58.9 - Irritable bowel syndrome without diarrhea Plan: Still has recurrent/frequent loose stools although this is also partly due to cholecystectomy years ago Patient reminded that her diet and emotional state (anxiety) can have a lot to do with her symptoms Work ups done for celiac disease in the past came out negative Follow up with GI as scheduled (5) Vitamin D deficiency: Code(s): E55.9 - Vitamin D deficiency, unspecified Plan: Continue OTC Vitamin D3 2000 units QD (6) Attention deficit: Code(s): R41.840 - Attention and concentration deficit Plan: Patient reportedly noticed some improvement in her concentration when she takes Phentermine for weight loss Recalls being diagnosed with ADD or ADHD when she was younger (is not sure if this was ever official) [facility] and management and to help assess for any concentration deficits - we have not yet received any report from the [facility] so far regarding this (7) Anxiety and depression: Code(s): F41.9 - Anxiety disorder, unspecified; F32.A - Depression, unspecified Plan: Patient asked to be started back on her Bupropion 200 mg QD in May 2023 due to increasing anxiety and depression at the time States that she has been doing better again with her mood lately and she has weaned herself off her Rx again recently Follow up with psychiatry as scheduled (8) Overweight (BMI 25.0-29.9): Comment: S/P gastric sleeve by Dr. Tran in 2018 Code(s): E66.3 - Overweight Plan: Patient has been able to lose a lot of weight over the past 6 months on both Phentermine 37.5 mg Q AM as needed and Topiramate 25 mg Q HS She is advised that she should monitor her weight closely and should not continue on her current weight loss Rx if she continues to lose weight and her weight drops under 140 pounds Plan To return in 6 months for her next annual physical examination Orders: Orders Complete Blood Count Auto Diff 6 Months D64.9 - Anemia, unspecified, Z00.00 - Encounter for general adult medical examination without abnormal findings Lipid Panel 6 Months E78.00 - Pure hypercholesterolemia, unspecified, Z00.00 - Encounter for general adult medical examination without abnormal findings Hemoglobin A1c 6 Months R73.9 - Hyperglycemia, unspecified, Z00.00 - Encounter for general adult medical examination without abnormal findings Comprehensive [place]. Panel Fast 6 Months E78.00 - Pure hypercholesterolemia, unspecified, Z00.00 - Encounter for general adult medical examination without abnormal findings Free T4 (Free Thyroxine) 6 Months E03.9 - Hypothyroidism, unspecified, Z00.00 - Encounter for general adult medical examination without abnormal findings Thyroid Stimulating Hormone 6 Months E03.9 - Hypothyroidism, unspecified, Z00.00 - Encounter for general adult medical examination without abnormal findings UA CC w/rflx Micro + Cult 6 Months R30.0 - Dysuria, Z00.00 - Encounter for general adult medical examination without abnormal findings Vitamin D 25-OH Total 6 Months E55.9 - Vitamin D deficiency, unspecified, Z00.00 - Encounter for general adult medical examination without abnormal findings Coding Level of Care Code Est Pt Level 4 (62372) Diagnoses Systemic lupus erythematosus, unspecified SLE type, unspecified organ involvement status M32.9 Systemic lupus erythematosus type: unspecified Systemic lupus erythematosus organ involvement: unspecified Acquired hypothyroidism E03.9 Pure hypercholesterolemia E78.00 Irritable bowel syndrome, unspecified type K58.9 Irritable bowel syndrome type: unspecified Vitamin D deficiency E55.9 Attention deficit R41.840 Anxiety and depression F41.9; F32.A Overweight (BMI 25.0-29.9) E66.3 Additional Codes MONSERRAT-7 Assessment Billing - MONSERRAT-7 Assessment Tool: MONSERRAT-7 Assessment [id number] ([id number])
== END 2024-02-10 17:00 | disposition home or self-care (01) ==
PROVIDERS: PCP Internal Medicine; Visit Provider Internal Medicine
DX: M32.9 Systemic lupus erythematosus, unspecified (principal); E03.9 Hypothyroidism, unspecified; E78.00 Pure hypercholesterolemia, unspecified; K58.9 Irritable bowel syndrome, unspecified; E55.9 Vitamin D deficiency, unspecified; R41.840 Attention and concentration deficit; F41.9 Anxiety disorder, unspecified; F32.A Depression, unspecified; E66.3 Overweight
CPT/HCPCS: 99214

== ENCOUNTER 2024-08-10 17:15 | Outpatient (AMB) | payer BC, SELFPAY ==
--- NOTE | 2024-08-10 17:15 | A.OFFPC_ITS ---
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 Required: No Accompanied by: Self / Same As Patient Allergies adhesive tape [ADHESIVE TAPE] Allergy (Severe, Verified 08/10/24 17:24) HIVES latex Allergy (Severe, Verified 08/10/24 17:24) throat swelling/hives prednisone Adverse Reaction (Severe, Verified 08/10/24 17:24) psychosis, extreme aggitation pumpkin Adverse Reaction (Unknown, Verified 08/10/24 17:24) unknown Medication List - Last Reconciled 08/11/24 by Ron Irving MD bisacodyl (Dulcolax (bisacodyl)) 10 mg (2 x 5 mg) PO ONCE 1 day dextroamphetamine-amphetamine 20 mg ER 20 mg PO QAM doxycycline hyclate 100 mg PO BID 7 days levothyroxine 50 mcg PO DAILY 90 days polyethylene glycol 3350 (Miralax) 238 grams PO ONCE 1 day Tobacco use date assessed: 08/10/24 Dental Screening Dental Screen Date: 08/10/24 Did you have a dental visit in the last 12 months?: Yes Did you have a dental problem in the last 6 months where you did not have access to dental care?: No Was dental information given to patient?: Patient has dentist HPI annual exam HPI Details Patient comes in today for her annual physical examination States that she has been sick for about a month now She initially went to a local urgent care center, where she was reportedly advised to just take some OTC meds for symptomatic relief She went back a couple of weeks later due to persistence of her symptoms and she was then prescribed Azithromycin, which she finished over a week ago States that her symptoms improved somewhat while she was on the antibiotics but have since remained mostly unchanged - she is still coughing on and off and coughs up some whitish to yellowish phlegm at times Notes that her chest still feels slightly congested often She denies any fever or sore throat; denies any headaches or dizziness Denies any chest pains, no increased shortness of breath No nausea/vomiting, no abdominal pain No change in bowel habits noted She denies any acute urinary symptoms She was seen by GI early last year and was advised that she will be scheduled for EGD/colonoscopy but states that she never received any call back regarding this since then She had her annual mammography last done on 10/04/2023 and she is scheduled for her next annual mammogram in September of 2024 She last had her Pap smear done with her six sigma black belt engineer back on 05/30/2022; states that her six sigma black belt engineer's office closed recently and she will need a referral to see someone else for this - she prefers seeing a female practitioner She was not able to get her labs done prior to her appointment today - states that she will try to get these done as soon as possible She also would like to get her flu shot today [facility] Medical History (Updated 08/11/24 @ 04:45 by Ron Irving MD) Attention deficit hyperactivity disorder (ADHD) Anxiety and depression Elevated bilirubin Overweight (BMI 25.0-29.9) Irritable bowel syndrome (IBS) Mass of right inguinal region Sleep disorder Depression Vitamin D deficiency Pure hypercholesterolemia Acquired hypothyroidism Systemic lupus erythematosus Surgical History History of pleomorphic adenoma of salivary gland History of sleeve gastrectomy History of laparoscopic cholecystectomy History of section Family History Father Hypertension Mother Medical history unknown Paternal Grandmother Cancer Paternal Uncle Cancer Social History Housing: House Alcohol intake: never Patient Tobacco Use Status: Former Tobacco user Tobacco use type: Cigarette e-Cigarette/Vaping Use: Currently Using Second Hand Smoke Exposure: No service: No Current occupational status: employed Current occupational exposures/hazards: No Cognitive needs: No Hearing needs: No Vision needs: No Questionnaire PHQ-9 Over the last 2 weeks, how often have you been bothered by any of the following problems? 1. Little interest or pleasure in doing things: not at all 2. Feeling down, depressed, or hopeless: not at all 3. Trouble falling or staying asleep, or sleeping too much: not at all 4. Feeling tired or having little energy: not at all 5. Poor appetite or overeating: not at all 6. Feeling bad about yourself - or that you are a failure or have let yourself or your family down: not at all 7. Trouble concentrating on things, such as reading the newspaper or watching television: not at all 8. Moving or speaking so slowly that other people could have noticed. Or the opposite - being so fidgety or restless that you have been moving around a lot more than usual: not at all 9. Thoughts that you would be better off or of hurting yourself in some way: not at all Total score: 0 Depression Screening Interpretation: Negative Depression Screening Done: Yes 37172 - PHQ-9 Billing: Yes Source: Developed by Drs. Channing Zapata, Hina Clayton, Noe Molina and colleagues, with an educational antoine from [employer]. Thrive Questionnaire Date Thrive assessed: 08/10/24 I am a: Patient What is your living situation today?: I have a steady place to live Within the past 12 months, did the food you bought not last and you didn't have the money to get more?: Sometimes True Within the past 12 months, did you worry whether your food would run out before you got money to buy more?: Sometimes True Do you have trouble paying for medicines?: No Do you have trouble getting transportation to medical appointments?: No Do you have trouble paying your heating and electricity bill?: No Do you have trouble taking care of your child, family member or friend?: No Do you have trouble with day-to-day activities such as bathing, preparing meals, shopping, managing finances, etc.?: No Are you currently unemployed and looking for a job?: No Are you interested in more education?: Yes Please select the resources that you would like help with: Food, Utilities and Education Currently or been in a relationship where the following occur: I choose not to answer THRIVE Score: 2 AUDIT C Alcohol Use Questionnaire (AUDIT-C) 1. How often do you have a drink containing alcohol?: 2-4 times a month 2. How many drinks containing alcohol do you have on a typical day when you are drinking?: 5 or 6 3. How often do you have six or more drinks on one occasion?: Less than monthly Total Score: 5 Score Reviewed/Action Taken: Yes MONSERRAT-7 AMB Questionnaire MONSERRAT-7 Date MONSERRAT - 7 assessed: 08/10/24 Feeling nervous, anxious, or on edge: 0 = Not at all Not being able to stop or control worryin = Not at all Worrying too much about different things: 0 = Not at all Trouble relaxin = Not at all Being so restless that it is hard to sit still: 0 = Not at all Becoming easily annoyed or irritable: 0 = Not at all Feeling afraid as if something awful might happen: 0 = Not at all Total MONSERRAT-7 score (0-4 normal; 5-9 mild; 10-14 moderate; 15-21 severe): 0 Source: Developed by Drs. Channing Zapata, Hina Clayton, Noe Molina and colleagues, with an educational antoine from [employer]. Review of Systems Const Denies chills, Reports fatigue, Denies fever(s), Denies headache(s) and Denies malaise Eyes Denies blurry vision, Denies change in vision, Denies irritation and Denies itchy eyes ENT Denies dysphagia, Denies dizziness, Denies otalgia, Denies headache(s), Denies nasal congestion, Denies neck pain, Denies odynophagia, Denies sinus pain and Denies sore throat Card Denies chest pain, Denies rapid heart rate, Denies irregular heart rhythm, Denies palpitations and Denies dyspnea Resp Reports as per HPI, Reports chest congestion, Reports cough, Denies dyspnea and Denies wheezing GI Denies abdominal pain, Denies bloating, Denies constipation, Denies dysphagia, Denies heartburn, Denies diarrhea, Denies nausea, Denies odynophagia and Denies vomiting Denies hematuria, Denies urinary frequency, Denies dysuria, Denies urinary incontinence and Denies urinary urgency Musc Denies back pain, Denies arthralgias, Denies joint swelling, Denies muscle weakness and Denies neck pain Skin/Breast Denies breast pain, Denies breast mass, Denies change in pigmentation, Denies lesions, Denies rash and Denies unusual bruising Neuro Denies dizziness, Denies headache(s) and Denies paresthesias Psych Denies anxiety and Denies depression Endo Reports fatigue and Denies palpitations Arron/Lymph Denies easy bruising Aller/Immun Denies itchy eyes and Denies wheezing Physical exam (Primary Care) Vital Signs: Last Vital Signs Pulse 89 08/10/24 17:16 BP 110/80 08/10/24 17:16 Pulse Ox 97 08/10/24 17:16 Oxygen Delivery Method Room Air 08/10/24 17:16 BMI result Body Mass Index 25.9 Tobacco/Smoking Status: Tobacco use Status Tobacco use date assessed 08/10/24 08/10/24 17:21 Patient Tobacco Use Status Former Tobacco user 08/10/24 17:21 Tobacco use type Cigarette 08/10/24 17:21 e-Cigarette/Vaping Use Currently Using 08/10/24 17:21 PHQ-9: PHQ-9 Score PHQ-9: Total score 0 08/10/24 18:48 Depression Screening Interpretation: Negative Thrive Assessment: Date of Thrive Assessment Date Thrive assessed 08/10/24 08/10/24 17:21 Currently or been in a relationship where the following occur: I choose not to answer Const General: no acute distress, alert and awake Orientation/consciousness: patient oriented x3 HENMT Head: Yes normocephalic and Yes atraumatic Ears: external ears normal, TM's normal bilaterally and EAC's normal General nose exam: No nasal discharge present Face and sinus: Yes normal facial exam and Yes sinuses nontender Teeth and gingiva: dentition normal Throat: Yes posterior oropharynx normal and Yes tonsils normal (no TP congestion) Eyes Eyelids: Yes eyelids normal Conjunctivae: conjunctivae normal Pupils: Equal, round and reactive pupils present EOM: EOMs intact bilaterally Neck Neck: Yes no lymphadenopathy and Yes supple Thyroid: Thyroid normal Resp Auscultation: no rales, rhonchi (scattered) throughout and no wheezes Cardio Rate: regular rate Rhythm: regular rhythm Heart sounds: no murmurs GI Palpation (GI): Soft to palpation, nontender and No hepatosplenomegaly present Auscultation: normal bowel sounds General: Yes no CVA tenderness Back/Spine/Pelvis Back: no CVA tenderness Cervical Spine: Cervical spine tenderness (mild) Thoracic/Lumbar Spine: thoracic and lumbar spine normal to inspection Skin Lesions: no lesions Rashes: no rashes Neuro General: patient oriented x3, moves all extremities, no focal motor deficits and CN's II-XI intact bilaterally Cranial nerves: Yes Equal, round and reactive pupils present Cognition (Neuro): normal cognition Gait exam (Neuro): Normal gait present Extrem General: Yes no clubbing, cyanosis or edema Office Procedures Flu Questionnaire Does the patient have a severe egg allergy?: No Does the patient have severe life threatening allergies?: No Does the patient have a fever or illness today?: No Has the patient ever had Guillain-[place] Syndrome?: No Has the patient ever had any past reaction to a flu shot?: No Immunizations Fluarix Triv [id number] (PF) 45 mcg (15 mcg x 3)/0.5 mL IM syringe Performing Provider: Ron Irving MD [facility] Administered by: AMY Ramírez on 08/10/24 17:30 Dose Route Admin Location Dispensed Lot Number Expiration Date [facility] Food Server 0.5 mL IM Left Deltoid 0.5 mL [id number] 02/21/25 [id number] [employer] VIS Given Date VIS Provided VIS Publication Date 08/10/24 Single Vaccine 21 Eligibility Eligibility Date Funding Source Not [facility] Eligible 08/10/24 Private Coding Level of Care Code Est Pt Prev Care 40-64y(84693) Diagnoses Annual physical exam Z00.00 Systemic lupus erythematosus, unspecified SLE type, unspecified organ involvement status M32.9 Systemic lupus erythematosus type: unspecified Systemic lupus erythematosus organ involvement: unspecified Acquired hypothyroidism E03.9 Pure hypercholesterolemia E78.00 Irritable bowel syndrome, unspecified type K58.9 Irritable bowel syndrome type: unspecified Vitamin D deficiency E55.9 Bronchitis J40 Attention deficit hyperactivity disorder (ADHD), combined type F90.2 Attention deficit-hyperactivity disorder type: combined inattentive- hyperactive Anxiety and depression F41.9; F32.A Overweight (BMI 25.0-29.9) E66.3 Additional Codes PHQ-9 - 56070 - PHQ-9 Billing: Yes ([id number]) Assessment & Plan Assessment & Plan (1) Annual physical exam: Code(s): Z00.00 - Encounter for general adult medical examination without abnormal findings Category: Medical Plan: Check labs SINGH She had her annual mammography last done on 10/04/2023 and she is scheduled for her next annual mammogram in September of 2024 She last had her Pap smear done with her six sigma black belt engineer back on 05/30/2022 and needs a referral to another [employer] sigma black belt engineer as her previous six sigma black belt engineer's practice recently closed She was also seen by GI early last year (2022) and was advised that she will be scheduled for EGD/colonoscopy but states that she never received any call back regarding this since then - we will refer her back to GI for this (2) Systemic lupus erythematosus: Code(s): M32.9 - Systemic lupus erythematosus, unspecified Category: Medical Qualifiers: Systemic lupus erythematosus type: unspecified Systemic lupus eryt hematosus organ involvement: unspecified Qualified Code(s): M32.9 - Systemic lupus erythematosus, unspecified Plan: Patient's lupus remains dormant and per rheumatology, no intervention is indicated at present? Follow-up with rheumatology (Dr. Oliver in [place]) as scheduled Patient continues to work remotely from home, which she states has helped her a lot in keeping her symptoms manageable (3) Acquired hypothyroidism: Code(s): E03.9 - Hypothyroidism, unspecified Category: Medical Plan: TFTs done back in September 2023 came out normal Continue Levothyroxine 50 mcg QD Patient admitted then that she has been taking her Levothyroxine irregularly as she would sometimes forget to take it for a few days She also admitted to taking it often in the morning with her coffee (with cream) as she has reportedly never been advised to take it on an empty stomach and not to eat or drink anything for 30 minutes afterwards She has been advised and instructed at her last visit to start taking her Levothyroxine correctly and daily We will see how her TFTs come out when she gets her follow up labs done and if she needs any further adjustments to her dosage (4) Pure hypercholesterolemia: Code(s): E78.00 - Pure hypercholesterolemia, unspecified Category: Medical Plan: Reinforced low cholesterol diet We will recheck her fasting lipids and labs SINGH for follow up (5) Irritable bowel syndrome (IBS): Comment: Several loose stools daily abdominal cramping-diagnosed IBS however needs further evaluation to rule out underlying causes to include IBD. Will get labs stool studies for further eval Code(s): K58.9 - Irritable bowel syndrome, unspecified Category: Medical Qualifiers: Irritable bowel syndrome type: unspecified Qualified Code(s): K58.9 - Irritable bowel syndrome without diarrhea Plan: She still has recurrent/frequent loose stools although this is also partly due to cholecystectomy years ago Patient is again reminded that her diet and emotional state (anxiety) can have a lot to do with her symptoms Work ups done for celiac disease in the past came out negative Follow up with GI as scheduled (6) Vitamin D deficiency: Code(s): E55.9 - Vitamin D deficiency, unspecified Category: Medical Plan: Continue OTC Vitamin D3 2000 units QD (7) Bronchitis: Code(s): J40 - Bronchitis, not specified as acute or chronic Category: Medical Plan: Patient reports experiencing her current respiratory symptoms for about a month now She has been treated with Azithromycin when she sought care at a local walk-in clinic with only partial relief of her symptoms Will go ahead and start her empirically today on oral Doxycycline 100 mg BID x 7 days to try clearing her respiratory symptoms up completely (8) Attention deficit hyperactivity disorder (ADHD): Code(s): F90.9 - Attention-deficit hyperactivity disorder, unspecified type Category: Medical Qualifiers: Attention deficit-hyperactivity disorder type: combined inattentive- hyperactive Qualified Code(s): F90.2 - Attention-deficit hyperactivity disorder, combined type Plan: Patient is now seeing a psychiatric provider in [place] and is on Dextroamphetamine-Amphetamine ER (Adderall) 20 mg Q AM for her ADHD and states that she is doing well on her current dose She is no longer taking Phentermine and Topiramate for weight loss This all started a while back when patient reportedly noticed some improvement in her concentration when she was taking Phentermine for weight loss and then recalls being diagnosed with ADD or ADHD when she was younger and she was subseq uently referred to psychiatry for evaluation for ADD/ADHD (9) Anxiety and depression: Code(s): F41.9 - Anxiety disorder, unspecified; F32.A - Depression, unspecified Category: Medical Plan: Patient asked to be started back on her Bupropion 200 mg QD back in May 2023 due to increasing anxiety and depression at the time She eventually weaned herself off her Rx again when she started feeling better Follow up with psychiatry as scheduled (10) Overweight (BMI 25.0-29.9): Comment: S/P gastric sleeve by Dr. 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
[2024-08-10 17:16] VITALS: BP 110/80; PULSE 89; O2SAT 97; BMI 25.9
== END 2024-08-10 17:45 | disposition home or self-care (01) ==
PROVIDERS: PCP Internal Medicine; Visit Provider Internal Medicine
DX: Z00.00 Encounter for general adult medical examination without abnormal findings (principal); M32.9 Systemic lupus erythematosus, unspecified; E03.9 Hypothyroidism, unspecified; E78.00 Pure hypercholesterolemia, unspecified; K58.9 Irritable bowel syndrome, unspecified; E55.9 Vitamin D deficiency, unspecified; J40 Bronchitis, not specified as acute or chronic; F90.2 Attention-deficit hyperactivity disorder, combined type; F41.9 Anxiety disorder, unspecified; F32.A Depression, unspecified; E66.3 Overweight

== ENCOUNTER → 2024-08-10 17:15 | Outpatient (BNVA) | payer BC, SELFPAY | PROVIDERS: PCP Internal Medicine; Visit Provider Internal Medicine | DX: Z00.00 Encounter for general adult medical examination without abnormal findings (principal); Z23 Encounter for immunization; M32.9 Systemic lupus erythematosus, unspecified; E03.9 Hypothyroidism, unspecified; E78.00 Pure hypercholesterolemia, unspecified; K58.9 Irritable bowel syndrome, unspecified; E55.9 Vitamin D deficiency, unspecified; J40 Bronchitis, not specified as acute or chronic; F90.2 Attention-deficit hyperactivity disorder, combined type; F41.9 Anxiety disorder, unspecified; F32.A Depression, unspecified; E66.3 Overweight; Z68.25 Body mass index [BMI] 25.0-25.9, adult; Z79.899 Other long term (current) drug therapy | CPT/HCPCS: 90471; 90656; 96127 ==

== ENCOUNTER 2024-09-28 11:11 | Outpatient (REF) | payer BC, OTHER, SELFPAY ==
[2024-09-28 11:30] LABS: MANUAL DIFF FLAG NO
[2024-09-28 11:41] LABS: Appearance Urine Clear; Color Urine Dark Yellow; Glucose Urine UA Negative (Negative); Leukocyte Esterase Urine Negative (Negative); Nitrite Urine Negative (Negative); PH 5.5 (5.0-9.0); Specific Gravity - Urine >= 1.030 (1.005-1.025); Urine Blood Negative (Negative); Urine Ketones Trace mg/dL (Negative); Urine Protein Trace mg/dL (Neg-Trace)
[2024-09-28 11:53] LABS: Estimated Average Glucose 97 mg/dL; Hemoglobin A1C 110.4166 umol/L; Total Hemoglobin (HGBA1C) 3498.2128 umol/L
[2024-09-28 11:54] LABS: Basophils Percent Auto 0.5 % (0-2); Eosinophils Absolute Auto 0.2 X10*3/uL (0.0-0.4); Eosinophils Percent Auto 2.2 % (0-4); Hematocrit 38.3 % (37.0-47.0); Hemoglobin 13.2 g/dl (12.0-16.0); Imm Gran Abs Auto 0.02 X10*3/uL (0.00-0.03); Imm Gran Pct Auto 0.2 % (0.0-0.4); Lymphocytes Absolute Auto 1.7 X10*3/uL (1.2-4.9); Lymphocytes Percent Auto 20.7 % (20-40); Mean Corpuscular HGB Conc 34.5 g/dl (31.0-35.0); Mean Platelet Volume 9.6 fL (9.4-12.3); Monocytes Absolute Auto 0.5 X10*3/uL (0.1-1.2); Monocytes Percent Auto 6.1 % (2-11); Neutrophils Absolute Auto 5.7 x10*3/uL (2.0-8.3); Neutrophils Percent Auto 70.3 % (45-73); Platelet Count 258 X10*3/uL (160-400); Red Cell Distribution Width 12.7 % (11.0-16.0); White Blood Count 8.1 X10*3/uL (4.8-10.8)
--- OUTSIDE RECORDS SUMMARY | 2024-09-28 12:07 | XMS_ITS | Clinical Summary ---
Author Organization [facility] ity Address [address] [place] [address] Care Team Providers Care Instrument Repair Supervisor Name Role Phone Unavailable Primary Care Provider Unavailabl e Social History Tobacco Use Types Packs/Day Years Used Date Smoking Tobacco: Never Assessed Sex and Gender Information Value Date Recorded Sex Assigned at Not on file Gender Identity Not on file Sexual Orientation Not on file Plan of Treatment Health Maintenance Due Date Last Done Comments Breast Cancer Screening 1981 DTaP,Tdap,and Td Vaccines (1 - Tdap) 2000 Hepatitis B Vaccines (1 of 3 - 19+ 3-dose series) 2000 Cervical Cancer Screening: P ap Smear 2002 COVID-19 Vaccine (2023-2 5 season) 2024 Influenza Vaccine (#1) 2024 HIB Vaccines Aged Out No longer eligi ble based on patient's age to complete this topic HPV Vaccines Aged Out No longer eligi ble based on patient's age to complete this topic Hepatitis A Vaccines Aged Out No long er eligible based on patient's age to complete this topic IPV Vaccines Aged Out No longer eligi ble based on patient's age to complete this topic MMR Vaccines Aged Out No longer eligi ble based on patient's age to complete this topic Meningococcal ACWY Vaccine Aged Out N o longer eligible based on patient's age to complete this topic Pneumococcal Vaccine: Pediat rics (0 to 5 Years) and At-Risk Patients (6 to 64 Years) Aged Out No longer eligible b ased on patient's age to complete this topic RSV Immunization Patients Un zoraida 20 months Aged Out No longer eligible b ased on patient's age to complete this topic Varicella Vaccines Aged Out No longer eligible based on patient's age to complete this topic
--- OUTSIDE RECORDS SUMMARY | 2024-09-28 12:07 | XMS_ITS | Encounter Summary ---
Author Organization [facility] Address [address] [place] [address] Care Team Providers Care Radio Officer Name Role Phone Patsy Ingram MD Primary Care Provider Ron Flanagan MD Primary Care Provider Marco esteban Encounter Details Date Type Department Care Team Description 10/30/2001 Telephone [facility] - [facility] [address] [place] [address] Social History Tobacco Use Types Packs/Day Years Used Date Smoking Tobacco: Never Assessed Sex Assigned at Date Recorded Not on file documented as of this encounter Plan of Treatment Not on file documented as of this encounter Visit Diagnoses Not on filedocumented in this encounter Care Teams Radio Officer Relationship Specialty Start Date End Date Patsy Ingram MD PCP - General 11/21/1998 02/01/15 Ron Irving MD PCP - General Internal Medicine 02/02/15 documented as of this encounter
[2024-09-28 12:30] LABS: Alanine Aminotransferase 14 U/L (0-31); Albumin Level 4.3 g/dL (3.5-5.0); Alkaline Phosphatase 46 U/L (39-117); Anion Gap 15 (12-20); Aspartate Amino Transferase 17 U/L (5-31); Bilirubin Total 1.3 mg/dL (0.0-1.0); Blood Urea Nitrogen 15 mg/dL (9-16); Calcium 8.9 mg/dL (8.4-10.2); Carbon Dioxide 25 mmol/L (22-29); Chloride 106 mmol/L (96-108); Cholesterol 154 mg/dL (<200); Estimated Glomerular Filt Rate > 60; Glucose Fasting 92 mg/dL (60-99); HDL Cholesterol 63 mg/dL (>40); LDL Cholesterol Calculated 82 mg/dL (<100); Potassium 3.9 mmol/L (3.3-5.1); Sodium 142 mmol/L (135-145); Total Protein 7.2 g/dL (6.5-8.0); Triglycerides 48 mg/dL (<150)
[2024-09-28 12:51] LABS: Free T4 (Free Thyroxine) 1.28 ng/dL (0.71-1.85); Thyroid Stimulating Hormone 0.52 uIU/mL (0.32-4.0); Vitamin D 25-OH Total 32.8 ng/mL (>30)
== END 2024-09-28 11:12 | disposition home or self-care (01) ==
LOC: HO.LAB 11:11
PROVIDERS: PCP Internal Medicine; Visit Provider Internal Medicine
DX: Z00.00 Encounter for general adult medical examination without abnormal findings (principal); E78.00 Pure hypercholesterolemia, unspecified; R73.9 Hyperglycemia, unspecified; E03.9 Hypothyroidism, unspecified; R30.0 Dysuria; E55.9 Vitamin D deficiency, unspecified; D64.9 Anemia, unspecified
CPT/HCPCS: 36415; 80053; 80061; 81003; 82306; 83036; 84439; 84443; 85025

== ENCOUNTER 2025-02-23 08:11 | Outpatient (AMB) | payer BC, SELFPAY ==
--- OUTSIDE RECORDS SUMMARY | 2025-02-23 08:14 | XMS_ITS | Clinical Summary ---
Author Organization [facility] ity Address [address] [place] [address] Care Team Providers Care Shoeshiner Name Role Phone Unavailable Primary Care Provider Unavailabl e Social History Tobacco Use Types Packs/Day Years Used Date Smoking Tobacco: Never Assessed Comments Unknown Sex and Gender Information Value Date Recorded Sex Assigned at Not on file Legal Sex Female 9:06 PM EST Gender Identity Not on file Sexual Orientation Not on file Plan of Treatment Health Maintenance Due Date Last Done Comments Breast Cancer Screening 1981 DTaP,Tdap,and Td Vaccines (1 - Tdap) 2000 Hepatitis B Vaccines (1 of 3 - 19+ 3-dose series) 2000 Cervical Cancer Screening: P ap Smear 2002 COVID-19 Vaccine (2023-2 5 season) 2024 Influenza Vaccine (Season Ended) 2025 HIB Vaccines Aged Out No longer eligi [...] patient's age to complete this topic Meningococcal B Vaccine Aged Out No l onger eligible based on patient's age to complete [...]
--- NOTE | 2025-02-23 08:41 | MHC.OFFVIS ---
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 Regular monthly menses-light, Mirena placed 2021. Currently is not sexually active. She denies vaginal itching or irritation. STI screening offered; she accepted, declines bloodwork. She tries to eat healthy and stays active with exercise. Denies family history of breast, ovarian or colon cancer. Last pap smear 2021, negative. Mammogram: 2023. Hx BRCA 1. PFSH Medical History BRCA1 positive Attention deficit hyperactivity disorder (ADHD) Anxiety and depression Elevated bilirubin Overweight (BMI 25.0-29.9) Irritable bowel syndrome (IBS) Mass of right inguinal region Sleep disorder Depression Vitamin D deficiency Pure hypercholesterolemia Acquired hypothyroidism Systemic lupus erythematosus Surgical History History of pleomorphic adenoma of salivary gland History of sleeve gastrectomy History of laparoscopic cholecystectomy History of section Family History Father Hypertension Pancreatic cancer Mother Medical history unknown Paternal Grandmother Cancer Paternal Uncle Cancer Social History Housing: House Alcohol intake: never Patient Tobacco Use Status: Former Tobacco user Tobacco use type: Cigarette e-Cigarette/Vaping Use: Currently Using Second Hand Smoke Exposure: No service: No Current occupational status: employed Current occupational exposures/hazards: No Cognitive needs: No Hearing needs: No Vision needs: No Female Reproductive History Menstrual Age of Menarche: 15 Date of last menstrual period: 02/21/25 control method: progestin IUCD (Mirena) Total pregnancies: 1 Full term: 1 Number of Living Children: 1 Date of last pap smear: 05/30/22 (negative pap smear, negative hpv ) History of abnormal pap smear: No Date of Mammogram: 10/04/23 (bi rad 1) Review of Systems Const All systems reviewed & are unremarkable except as noted in HPI and below Reports as per HPI Eyes Reports no additional complaints ENT Reports no additional complaints Card Reports no additional complaints Resp Reports no additional complaints GI Reports as per HPI and Reports no additional complaints Reports as per HPI Musc Reports no additional complaints Skin/Breast Reports as per HPI Neuro Reports no additional complaints Psych Reports no additional complaints Endo Reports no additional complaints Arron/Lymph Reports no additional complaints Aller/Immun Reports no additional complaints Physical Exam Vital Signs: Last Vital Signs BP 112/72 02/23/25 08:48 BMI result Body Mass Index 25.7 Const General: cooperative, healthy appearing, no acute distress, well developed and alert Orientation/consciousness: patient oriented x3 HEENT Head: Yes normal to inspection Eyes General: appearance normal, both eyes and all related structures Neck Neck: Yes normal visual inspection Thyroid: Thyroid normal Chest Chest palpation & inspection: normal inspection of the chest and other (no puckering, dimpling, peau de orange, retraction, discharge, masses) Breast/axilla inspection: normal inspection of the breasts Breast/axilla palpation: normal palpation of the breasts Resp Effort & Inspection: normal respiratory effort GI Inspection: Yes scar Palpation (GI): Soft to palpation Rectal Exam - Female: deferred General: Yes bladder normal to palpation External Female Exam: normal external appearance and normal appearance of the urethra Speculum Exam - Vagina: normal appearance of the vagina, normal palpation and normal vaginal discharge Speculum Exam - Cervix: normal appearance of the cervix and normal palpation Bimanual exam- vagina & uterus: normal bimanual exam, normal palpation, uterine size normal, bladder normal to palpation, normal palpation and non-tender Bimanual Exam- Adnexa, other: no masses Skin General skin exam: no rashes or lesions noted Rashes: no rashes Neuro General: patient oriented x3 Cognition (Neuro): normal cognition Extrem General: Yes normal to inspection Psych Attitude: cooperative Thought process: Normal thought process present Assessment & Plan Assessment & Plan (1) BRCA1 positive: Comment: Pathogenic Variant [id number] Code(s): Z15.01 - Genetic susceptibility to malignant neoplasm of breast; Z15.09 - Genetic susceptibility to other malignant neoplasm Category: Medical (2) Encounter for well woman exam with routine gynecological exam: Code(s): Z01.419 - Encounter for gynecological examination (general) (routine) without abnormal findings Category: Medical Plan: Discussed: Current recommendations for pap smears per ASCCP guidelines. Breast awareness and periodic breast exams. Mammogram yearly. Maintain a healthy lifestyle including a well balanced diet and routine exercise. Use condoms for STI and prevention. Patient verbalizes understanding and agrees to the plan of care. She was given opportunity to ask questions and all questions were answered to the best of my ability. 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 This note is constructed using voice recognition software. While every effort has been made to ensure accuracy, sanitation supervisor errors may have been included. Plan Counseled regarding BRCA 1-high-risk recommend screening surveillance and options for risk reduction surgery. She has agreed and accepts consult referrals. Referral for consult for breast surveillance sent. Referral to Gyne Onc for consult regarding risk reduction surgery sent. The patient expressed understanding and agreement with the plan of care. All of her questions and concerns were addressed to the best of my ability. This note is constructed using voice recognition software. While every effort has been made to ensure accuracy, sanitation supervisor errors may have been included. Orders: Orders Bacterial Vaginosis Panel Today Z11.3 - Encounter for screening for infections with a predominantly sexual mode of transmission, Z15.01 - Genetic susceptibility to malignant neoplasm of breast, Z15.09 - Genetic susceptibility to other malignant neoplasm CT NG by PCR Vag/Cerv Today Z11.3 - Encounter for screening for infections with a predominantly sexual mode of transmission Referrals Breast Surgery Referral Z15.01 - Genetic susceptibility to malignant neoplasm of breast, Z15.09 - Genetic susceptibility to other malignant neoplasm Gynecologic Oncology Referral Z15.01 - Genetic susceptibility to malignant neoplasm of breast, Z15.09 - Genetic susceptibility to other malignant neoplasm Coding Level of Care Code New Pt Prev Care 40-64y(05674) Diagnoses BRCA1 positive Z15.01; Z15.09 Encounter for well woman exam with routine gynecological exam Z01.419
[2025-02-23 08:48] VITALS: BP 112/72; BMI 25.7
== END 2025-02-23 09:30 | disposition home or self-care (01) ==
LOC: HO.HWS 08:12
PROVIDERS: PCP Internal Medicine; Visit Provider Advanced Practice Midwife
DX: Z01.419 Encounter for gynecological examination (general) (routine) without abnormal findings (principal)
CPT/HCPCS: 99386; 99459

== ENCOUNTER 2025-02-23 08:11 | Outpatient (REF) | payer BC, OTHER, SELFPAY ==
[2025-02-23 21:11] LABS: Bacterial Vaginosis PCR NEGATIVE (Negative); Candida Group PCR NOT DETECTED (Not Detect); Candida glab krusei PCR NOT DETECTED (Not Detect); Trichomonas vaginalis PCR NOT DETECTED (Not Detect)
[2025-02-23 22:20] LABS: CT PCR NOT DETECTED (Not Detect.); NG PCR NOT DETECTED (Not Detect.)
== END 2025-02-23 08:12 | disposition home or self-care (01) ==
LOC: HO.LNP 08:11
PROVIDERS: PCP Internal Medicine; Visit Provider Advanced Practice Midwife
DX: Z11.3 Encounter for screening for infections with a predominantly sexual mode of transmission (principal); Z15.01 Genetic susceptibility to malignant neoplasm of breast; Z15.09 Genetic susceptibility to other malignant neoplasm
CPT/HCPCS: 81515; 87491; 87591

== ENCOUNTER 2025-03-08 17:57 | Outpatient (REF) | payer BC, OTHER, SELFPAY ==
--- NOTE | ~2025-03-08 | MR_ITS ---
EXAMINATION: MR CERVICAL SPINE WITHOUT CONTRAST CLINICAL INFORMATION: Cervicalgia. COMPARISON: None available. TECHNIQUE: MRI of the cervical spine was obtained using routine sequences without contrast. FINDINGS: Craniocervical junction is intact. Normal position of the cerebellar tonsils. No bone marrow STIR signal abnormality. Marginal osteophyte formation, decreased signal and height at the intervertebral disc C5-6. Reverse curvature apex at C4-5. Grade 1 retrolisthesis C5-6. Cervical spinal cord signal is normal. C2-3: No disc herniation. No neuroforamina stenosis. C3-4: Central disc osteophyte compresses formation resulting in ventral indentation to the thecal sac. No neuroforamina stenosis. C4-5: Broad-based disc osteophyte complex formation resulting in ventral deformity of spinal cord. There is CSF signal in the dorsal aspect of the thecal sac. Bilateral neuroforamina narrowing. C5-6: Broad-based disc osteophyte complex formation resulting in ventral deformity of the spinal cord. There is CSF signal in the ventral and dorsal aspect of the thecal sac. Left neuroforamina narrowing. C6-7: Central disc osteophyte complex formation resulting in ventral deformity of the thecal sac. No neuroforamina stenosis. C7/T1: Broad-based disc osteophyte consummation. No central spinal canal or neuroforamina stenosis. No prevertebral compartment hematoma, mass or fluid collection. Flow-void signal within the main vessels is normal. Left vertebral artery is dominant. MR/MR cervical spine wo con IMPRESSION: Multilevel cervical spondylosis, C3-4 to C6-7 resulting in central spinal canal stenosis at C4-5 and to a lesser extent C5-6 without cord compression, cord edema and or myelopathy. Electronically signed by: Phillip Mason MD 03/09/2025 07:14 AM EDT
== END 2025-03-08 17:58 | disposition home or self-care (01) ==
LOC: HO.MRI 17:57
PROVIDERS: PCP Internal Medicine; Visit Provider Internal Medicine
DX: M54.2 Cervicalgia (principal)
CPT/HCPCS: 72141

== ENCOUNTER → 2025-03-08 18:04 | Outpatient (BNV) | payer BC, SELFPAY | PROVIDERS: PCP Internal Medicine; Visit Provider Radiology Diagnostic Radiology | DX: M47.812 Spondylosis without myelopathy or radiculopathy, cervical region (principal); M48.02 Spinal stenosis, cervical region | CPT/HCPCS: 72141 ==

== ENCOUNTER 2025-03-30 16:00 | Outpatient (AMB) | payer BC, SELFPAY ==
--- NOTE | 2025-03-30 16:09 | MHC.OFFVIS ---
Vital Signs 03/30/25 16:13 Height 5 ft 8 in Weight 170 lb 3.15 oz BMI 25.9 BP 120/79 Blood Pressure Location Rt brachial Position Sitting Pulse 88 Intake Visit Reasons: Endo rescreen was JM pt Intake Note: Pat presents in office today for pre colonoscopy consults. CC: Patient c/o heartburn s/p hiatal hernia repair, diarrhea. 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 She was seen once by Andreia Gomez in 2022 and at that time several studies were ordered that were never completed. PMX Hypothyroid High cholesterol Lupus Attention deficit disorder Depression Diarrhea Cervical spondylosis Inconclusive study for JOAQUINA * SURGICAL HISTORY Excision of adenoma of the salivary gland Sleeve gastrectomy Cholecystectomy section * ALLERGIES Prednisone Latex * Profyle LABS: Laboratory Tests 09/28/24 11:28 WBC 8.1 Hgb 13.2 Hct 38.3 Plt Count 258 Estimated GFR > 60 Total Bilirubin 1.3 H AST 17 ALT 14 Alkaline Phosphatase 46 TSH 0.52 Free T4 1.28 TODAY'S VISIT She has had diarrhea since 6 mos after her chintan. She manages with imodium quite well. Does not like chronic medications. NO FHX crc, she had scope in 20's and though she has polyps but since no follow up given likely not actual TA's. She is not in favor of extensive testing. No indication for EGD. Return for usual CRC screening at age 46. prn [facility] Medical History (Updated 03/30/25 @ 16:55 by NATY Mcdonnell) Respiratory tract infection Annual physical exam Screening for STD (sexually transmitted disease) Encounter for well woman exam with routine gynecological exam Cervical cancer screening Otitis BRCA1 positive Attention deficit hyperactivity disorder (ADHD) Anxiety and depression Elevated bilirubin Overweight (BMI 25.0-29.9) Irritable bowel syndrome (IBS) Mass of right inguinal region Sleep disorder Depression Vitamin D deficiency Pure hypercholesterolemia Acquired hypothyroidism Systemic lupus erythematosus Surgical History (Updated 03/30/25 @ 16:16 by MILIND Paul) H/O colonoscopy History of pleomorphic adenoma of salivary gland History of sleeve gastrectomy History of laparoscopic cholecystectomy History of section Family History Father Hypertension Pancreatic cancer Mother Medical history unknown Paternal Grandmother Cancer Paternal Uncle Cancer Social History Housing: House Alcohol intake: never Patient Tobacco Use Status: Former Tobacco user Tobacco use type: Cigarette e-Cigarette/Vaping Use: Currently Using Second Hand Smoke Exposure: No service: No Current occupational status: employed Current occupational exposures/hazards: No Cognitive needs: No Hearing needs: No Vision needs: No Female Reproductive History Menstrual Age of Menarche: 15 Review of Systems Const Denies fatigue, Denies fever(s), Denies night sweats, Denies poor appetite and Denies weight loss ENT Reports Normal hearing present, Denies dental pain, Denies dysphagia, Denies hearing loss, Denies mouth pain, Denies odynophagia, Denies throat swelling, Denies tongue swelling and Reports other (Dentition adequate) Card Reports no additional complaints Resp Reports no additional complaints GI Details: Denies abdominal pain, Denies melena, Denies bloating, Denies hematochezia, Denies constipation, Denies GI cramping, Denies dysphagia, Denies excessive flatus, Denies early satiety, Denies heartburn, Reports diarrhea, Denies nausea, Denies odynophagia, Denies vomiting and Denies hematemesis Skin/Breast Denies pruritus, Denies lesions, Denies rash and Denies jaundice Neuro Reports Normal hearing present and Denies Abnormal speech present Endo Denies fatigue Aller/Immun Denies throat swelling and Denies tongue swelling Physical Exam Vital Signs: Last Vital Signs Pulse 88 03/30/25 16:13 BP 120/79 03/30/25 16:13 BMI result Body Mass Index 25.9 Const General: cooperative, no acute distress, well developed and well groomed Nutritional Appearance: average body habitus and well nourished Orientation/consciousness: oriented to person, oriented to place and oriented to time Limitations: No language barrier HEENT Head: Yes normocephalic and Yes atraumatic Eyes General: appearance normal, both eyes and all related structures Pupils: Equal, round and reactive pupils present Neck Neck: Yes normal visual inspection and Yes no lymphadenopathy Thyroid: Thyroid normal Resp Effort & Inspection: normal respiratory effort and able to speak in complete sentences Cardio Peripheral pulses: radial pulses present Skin General skin exam: no rashes or lesions noted, skin not dry, no jaundice, No spider nevi and no striae Rashes: no rashes Neuro General: oriented to person, oriented to place and oriented to time Cranial nerves: Yes Equal, round and reactive pupils present and Yes Normal hearing present Speech: No Abnormal speech present Extrem General: Yes normal to inspection Psych Appearance: grossly normal and well kempt Mental Status: mental status grossly normal Speech and movement: Normal speech and movement present Affect: normal affect Attitude: cooperative Thought process: Normal thought process present and not confabulating Thought content: Normal thought content present Insight: Good insight present (Psych) Judgement: Good judgement present (Psych) Assessment & Plan Assessment & Plan (1) Post-cholecystectomy syndrome: Code(s): K91.5 - Postcholecystectomy syndrome Category: Medical Plan She has had diarrhea since 6 mos after her chintan. She manages with imodium quite well. Does not like chronic medications. NO FHX crc, she had scope in 20's and though she has polyps but since no follow up given likely not actual TA's. She is not in favor of extensive testing. No indication for EGD. Return for usual CRC screening at age 46. prn Coding Level of Care Code New Pt Level 3 (89035) Diagnoses Post-cholecystectomy syndrome K91.5
[2025-03-30 16:13] VITALS: BP 120/79; PULSE 88; BMI 25.9
--- OUTSIDE RECORDS SUMMARY | 2025-03-30 16:19 | XMS_ITS | Clinical Summary ---
Author Organization [facility] Address [address] [place] [id number] Phone Care Team Providers Care Solar/Renewable Energy Sales Name Role Phone Ron Irving MD Primary Care Provider [phone] Allergies No known active allergies Social History Tobacco Use Types Packs/Day Years Used Date Smoking Tobacco: Former Cigarettes Comments Unknown Sex and Gender Information Value Date Recorded Sex Assigned at Not on file Legal Sex Female 11:10 AM EDT Gender Identity Not on file Sexual Orientation Not on file Last Filed Vital Signs Vital Sign Reading Time Taken Comments Blood Pressure 125/73 11/29/2014 1:39 PM EDT Pulse 95 11/29/2014 1:39 PM EDT Temperature 36.3 C (97.3 F) 11/29/2014 1:39 PM EDT Respiratory Rate 16 11/29/2014 1:39 PM EDT Oxygen Saturation - - Inhaled Oxygen Concentration - - Weight 98.5 kg (217 lb 1.6 oz) 11/29/2014 1:39 P M EDT Height 175.3 cm (5' 9 ) 11/29/2014 1:39 PM EDT Body Mass Index 32.06 11/29/2014 1:39 PM EDT Plan of Treatment Not on file Medical Devices Not on file Insurance [facility] OUT OF STATE PPO HEALTH SAFETY NET PARTIAL CROSS OUT [employer] PPO HEALTH SAFETY NET PARTIAL BLUE CROSS OUT OF STATE PPO HEALTH SAFETY NET PARTIAL [place] [address] OUT OF [facility] PPO Member Subscriber Plan / Payer ( fective 2012-Present) Name:Pat Russ Relation to Subscriber:Self Name:Pat Russ Payer ID:[id number] ([facility]) Group ID:[id number] Type:PPO Address: [address] NET PARTIAL BLUE CROSS OUT OF STATE PPO HEALTH SAFETY NET PARTIAL [address] [place] [address] OUT OF [facility] PPO HEALTH SAFETY NET PARTIAL CROSS OUT OF STATE PPO [email or web address] SAFETY NET PARTIAL OUT [employer] PPO [email or web address] SAFETY NET [place] [address] [address] [place] [address] [place] [address] SAFETY NET PARTIAL Care Teams Solar/Renewable Energy Sales Relationship Specialty Start Date End Date Ron Irving MD [address] [place] [address] [place] [address] PCP - General Internal Medicine 11/22/14 Additional Source Comments The information contained in this document represents components of the legal health record. It is not the complete legal health record.[facility]
--- OUTSIDE RECORDS SUMMARY | 2025-03-30 16:19 | XMS_ITS | Clinical Summary ---
Author Organization [facility] ity Address [address] [place] [address] Care Team Providers Care Machine Taper Name Role Phone Unavailable Primary Care Provider [...] 2002 COVID-19 Vaccine (2023-2 5 season) 2024 Depression Screening 08/25/2024 Influenza Vaccine (#1) 2025 HIB Vaccines Aged Out No longer [...] 5 Years) and At-Risk Patients (6 to 49 Years) Aged Out No longer eligible b ased on patient's age to complete this topic RSV Immunization Patients Un zoraida 20 months Aged Out No longer eligible b ased on patient's age to complete this topic Varicella Vaccines Aged Out No longer eligible based on patient's age to complete this topic
== END 2025-03-30 16:59 | disposition home or self-care (01) ==
LOC: HO.HGI 16:01
PROVIDERS: PCP Internal Medicine; Visit Provider Nurse Practitioner
DX: K91.5 Postcholecystectomy syndrome (principal)
CPT/HCPCS: 99203

== ENCOUNTER 2025-04-01 09:29 | Outpatient (AMB) | payer BC, SELFPAY ==
--- OUTSIDE RECORDS SUMMARY | 2025-04-01 09:35 | XMS_ITS | Clinical Summary ---
Author Organization [facility] ity Address [address] [place] [address] Care Team Providers Care Parking Assistant Name Role Phone Unavailable Primary Care Provider [...]
--- NOTE | 2025-04-01 09:36 | A.SPINEOV_ITS ---
Intake Visit Reasons: spondylosis cervical region Intake Note: Ms. Russ is here today c/o neck pain. MRI done @ [facility] [place]. Allergies adhesive tape (ADHESIVE TAPE) Allergy (Severe, Verified 02/23/25 08:47) HIVES latex Allergy (Severe, Verified 02/23/25 08:47) throat swelling/hives prednisone Adverse Reaction (Severe, Verified 02/23/25 08:47) psychosis, extreme aggitation pumpkin Adverse Reaction (Unknown, Verified 03/30/25 16:19) unknown Assessment & Plan Assessment & Plan (1) Cervical spondylosis: Code(s): M47.812 - Spondylosis without myelopathy or radiculopathy, cervical region Category: Medical Plan Dear colleague Thank you for referring Norah Russ to the office today with a chief complaint of chronic neck pain. HPI: This 44-year-old female is suffering from a constant neck pain. The pain is located in the posterior neck and can radiate to his shoulders, occiput and sometimes results and tension headaches. She constantly moves her neck trying to relieve the pain. She takes ibuprofen 800 mg 3 times a day. Denies radiation down her arms. No numbness or weakness. She has tried chiropractic therapy in the past without success. She is doing physical therapy home exercises without success. PMH: Lupus, Raynaud's, fibromyalgia, parotid tumor, gastric sleeve, cholec ystectomy Medications: Amphetamine levothyroxine Allergies: Prednisone Social history: Nonsmoker Physical Exam: Pleasant female. She is able to move her neck in all directions without restrictions. No neurological deficits for motor sensation and reflexes. Gait is undisturbed. Radiological Studies: MRI done at [facility] on 03/08/2025 shows mild cervical spondylosis and a mild kyphosis with a fulcrum at C4-5. The MRI findings are similar to an x-ray of 04/03/2022 where there is mild degenerative disc disease C5-6 and again the mild kyphosis. Impression/Plan: This patient is suffering from chronic neck pain without significant abnormalities on the MRI. She is not a surgical candidat. I advised her to alternate ibuprofen and Tylenol. She could repeat an MRI in 2 y ears to see if there is 1 segment that is significantly deteriorating. Thank you for allowing me to participate in your patients care. total time spent was 50 minutes in counseling ,coordination of plan, personal review of imaging, surgical decision making and subsequent plan Tutu Shaw MD, PhD Spine Fellowship Trained Neurosurgeon Director, [facility] Coding Level of Care Code New Pt Level 4 (03712) Diagnoses Cervical spondylosis M47.812
== END 2025-04-01 10:09 | disposition home or self-care (01) ==
LOC: HO.HNS 09:30
PROVIDERS: PCP Internal Medicine; Referring Provider Internal Medicine; Visit Provider Neurological Surgery
DX: M47.812 Spondylosis without myelopathy or radiculopathy, cervical region (principal)
CPT/HCPCS: 99204

== ENCOUNTER 2025-05-03 16:51 | Outpatient (AMB) | payer BC, SELFPAY ==
[2025-05-03 17:00] VITALS: BP 90/66; PULSE 76; RESP 18; TEMP 36.4; O2SAT 98; BMI 25.9
--- NOTE | 2025-05-03 17:00 | A.OFFPC_ITS ---
Vital Signs 05/03/25 17:00 05/03/25 17:22 Height 5 ft 8 in Weight 170 lb 8 oz BMI 25.9 BP 90/66 110/78 Blood Pressure Location Lt brachial Lt brachial Position Sitting Sitting Respiration 18 Pulse 76 Pulse Source Pulse Oximeter Temp 97.5 F Temp Source Temporal Artery Scan Pulse Oximetry (%) 98 Oxygen Delivery Method Room Air Intake Visit Reasons: discuss weight loss meds Recruiting And Selection Consultant Required: No Accompanied by: Self / Same As Patient Allergies adhesive tape (ADHESIVE TAPE) Allergy (Severe, Verified 05/03/25 17:17) HIVES latex Allergy (Severe, Verified 05/03/25 17:17) throat swelling/hives prednisone Adverse Reaction (Severe, Verified 05/03/25 17:17) psychosis, extreme aggitation pumpkin Adverse Reaction (Unknown, Verified 05/03/25 17:17) unknown Medication List - Last Reconciled 05/03/25 by Ron Irving MD dextroamphetamine-amphetamine 20 mg ER 20 mg PO QAM levothyroxine 50 mcg PO DAILY 90 days Tobacco use date assessed: 05/03/25 Dental Screening Dental Screen Date: 05/03/25 Did you have a dental visit in the last 12 months?: Yes Did you have a dental problem in the last 6 months where you did not have access to dental care?: No Was dental information given to patient?: Patient has dentist HPI discuss weight loss meds HPI Details Patient comes in today for her follow-up visit States that she feels well She denies any headaches or dizziness Denies any chest pains, no shortness of breath No nausea/vomiting, no abdominal pain No change in bowel habits noted States that she would like to get back on her weight loss medication as she has not been able to lose any weight since she stopped taking her weight loss medication back in July 2024 States that she feels a lot better when her weight was down to around 150 lb about 1-2 years ago She is currently also taking amphetamine salts (generic Adderall) for her ADHD as prescribed by her psychiatrist - states that she was having a hard time doing her job and completing her work before she was started on her prescription [facility] Medical History (Updated 05/03/25 @ 17:45 by Ron Irving MD) Annual physical exam Respiratory tract infection Screening for STD (sexually transmitted disease) Encounter for well woman exam with routine gynecological exam Cervical cancer screening Otitis BRCA1 positive Attention deficit hyperactivity disorder (ADHD) Anxiety and depression Elevated bilirubin Overweight (BMI 25.0-29.9) Irritable bowel syndrome (IBS) Mass of right inguinal region Sleep disorder Depression Vitamin D deficiency Pure hypercholesterolemia Acquired hypothyroidism Systemic lupus erythematosus Surgical History H/O colonoscopy History of pleomorphic adenoma of salivary gland History of sleeve gastrectomy History of laparoscopic cholecystectomy History of section Family History Father Hypertension Pancreatic cancer Mother Medical history unknown Paternal Grandmother Cancer Paternal Uncle Cancer Social History Housing: House Alcohol intake: never Patient Tobacco Use Status: Former Tobacco user Tobacco use type: Cigarette e-Cigarette/Vaping Use: Currently Using Second Hand Smoke Exposure: No service: No Current occupational status: employed Current occupational exposures/hazards: No Cognitive needs: No Hearing needs: No Vision needs: No Female Reproductive History Menstrual Age of Menarche: 15 Questionnaire PHQ-9 Over the last 2 weeks, how often have you been bothered by any of the following problems? 1. Little interest or pleasure in doing things: not at all 2. Feeling down, depressed, or hopeless: not at all 3. Trouble falling or staying asleep, or sleeping too much: not at all 4. Feeling tired or having little energy: more than half the days 5. Poor appetite or overeating: more than half the days 6. Feeling bad about yourself - or that you are a failure or have let yourself or your family down: not at all 7. Trouble concentrating on things, such as reading the newspaper or watching television: not at all 8. Moving or speaking so slowly that other people could have noticed. Or the opposite - being so fidgety or restless that you have been moving around a lot more than usual: not at all 9. Thoughts that you would be better off or of hurting yourself in some way: not at all Total score: 4 Depression Screening Interpretation: Negative Depression Screening Done: Yes 22544 - PHQ-9 Billing: Yes Source: Developed by Drs. Channing ZapataHina Kurt Kroenke and colleagues, with an educational antoine from [employer]. Thrive Questionnaire Date Thrive assessed: 05/03/25 I am a: Patient What is your living situation today?: I have a steady place to live Within the past 12 months, did the food you bought not last and you didn't have the money to get more?: Often true Within the past 12 months, did you worry whether your food would run out before you got money to buy more?: Sometimes True Do you have trouble paying for medicines?: No Do you have trouble getting transportation to medical appointments?: No Do you have trouble paying your heating and electricity bill?: No Do you have trouble taking care of your child, family member or friend?: No Do you have trouble with day-to-day activities such as bathing, preparing meals, shopping, managing finances, etc.?: No Are you currently unemployed and looking for a job?: No Are you interested in more education?: No Please select the resources that you would like help with: None Currently or been in a relationship where the following occur: I choose not to answer THRIVE Score: 2 AUDIT C Alcohol Use Questionnaire (AUDIT-C) 1. How often do you have a drink containing alcohol?: 2-3 times a week 2. How many drinks containing alcohol do you have on a typical day when you are drinking?: 3 or 4 3. How often do you have six or more drinks on one occasion?: Monthly Total Score: 6 Score Reviewed/Action Taken: Yes MONSERRAT-7 AMB Questionnaire MONSERRAT-7 Date MONSERRAT - 7 assessed: 05/03/25 Feeling nervous, anxious, or on edge: 0 = Not at all Not being able to stop or control worryin = Not at all Worrying too much about different things: 0 = Not at all Trouble relaxin = Not at all Being so restless that it is hard to sit still: 0 = Not at all Becoming easily annoyed or irritable: 0 = Not at all Feeling afraid as if something awful might happen: 0 = Not at all Total MONSERRAT-7 score (0-4 normal; 5-9 mild; 10-14 moderate; 15-21 severe): 0 Source: Developed by Hina Bryson Kurt Kroenke and colleagues, with an educational antoine from [employer]. Review of Systems Const Denies chills, Denies fatigue, Denies fever(s) and Denies headache(s) ENT Denies dysphagia, Denies dizziness, Denies otalgia, Denies headache(s), Denies neck pain, Denies odynophagia and Denies sore throat Card Denies chest pain, Denies palpitations and Denies dyspnea Resp Denies cough and Denies dyspnea GI Denies abdominal pain, Denies constipation, Denies dysphagia, Denies heartburn, Denies diarrhea, Denies nausea, Denies odynophagia and Denies vomiting Denies difficulty voiding, Denies nocturia and Denies dysuria Musc Denies back pain and Denies neck pain Skin/Breast Denies rash Neuro Denies dizziness and Denies headache(s) Endo Denies fatigue and Denies palpitations Physical exam (Primary Care) Vital Signs: Last Vital Signs Temp 97.5 F 05/03/25 17:00 Pulse 76 05/03/25 17:00 Resp 18 05/03/25 17:00 BP 110/78 05/03/25 17:22 Pulse Ox 98 05/03/25 17:00 Oxygen Delivery Method Room Air 05/03/25 17:00 BMI result Body Mass Index 25.9 Tobacco/Smoking Status: Tobacco use Status Tobacco use date assessed 05/03/25 05/03/25 17:04 Patient Tobacco Use Status Former Tobacco user 05/03/25 17:04 Tobacco use type Cigarette 05/03/25 17:04 e-Cigarette/Vaping Use Currently Using 05/03/25 17:04 PHQ-9: PHQ-9 Score PHQ-9: Total score 4 05/03/25 22:37 Depression Screening Interpretation: Negative Thrive Assessment: Date of Thrive Assessment Date Thrive assessed 05/03/25 05/03/25 17:04 Currently or been in a relationship where the following occur: I choose not to answer Const General: no acute distress and alert HENMT Ears: TM's normal bilaterally and EAC's normal Throat: Yes posterior oropharynx normal and Yes tonsils normal (no TP congestion) Neck Neck: Yes no lymphadenopathy and Yes supple Thyroid: Thyroid normal Resp Auscultation: clear to auscultation bilaterally, no rales and no wheezes Cardio Rate: regular rate Rhythm: regular rhythm Heart sounds: no murmurs GI Palpation (GI): Soft to palpation and nontender Auscultation: normal bowel sounds General: Yes no CVA tenderness Back/Spine/Pelvis Back: no CVA tenderness Cervical Spine: Cervical spine tenderness (mild) Thoracic/Lumbar Spine: thoracic and lumbar spine normal to inspection Skin Rashes: no rashes Extrem General: Yes no clubbing, cyanosis or edema Results Reviewed Results Reviewed: Laboratory Tests 09/28/24 09/28/24 11:22 11:28 WBC 8.1 Hgb 13.2 Hct 38.3 Plt Count 258 Sodium 142 Potassium 3.9 Creatinine 0.75 Estimated GFR > 60 Fasting Glucose 92 Hemoglobin A1c % 5.0 Calcium 8.9 AST 17 ALT 14 Triglycerides 48 Cholesterol 154 LDL Cholesterol, Calc 82 HDL Cholesterol 63 25-OH Vitamin D Total 32.8 TSH 0.52 Free T4 1.28 Ur Specific Chunky >= 1.030 H Urine Protein Trace Urine Glucose (UA) Negative Urine Blood Negative Urine Nitrite Negative Ur Leukocyte Esterase Negative Coding Level of Care Code Est Pt Level 4 (81882) Diagnoses Systemic lupus erythematosus, unspecified SLE type, unspecified organ involvement status M32.9 Systemic lupus erythematosus type: unspecified Systemic lupus erythematosus organ involvement: unspecified Acquired hypothyroidism E03.9 Pure hypercholesterolemia E78.00 Irritable bowel syndrome, unspecified type K58.9 Irritable bowel syndrome type: unspecified Vitamin D deficiency E55.9 Attention deficit hyperactivity disorder (ADHD), combined type F90.2 Attention deficit-hyperactivity disorder type: combined inattentive- hyperactive Anxiety and depression F41.9; F32.A Overweight (BMI 25.0-29.9) E66.3 Additional Codes PHQ-9 - 83228 - PHQ-9 Billing: Yes ([id number]) Assessment & Plan Assessment & Plan (1) Systemic lupus erythematosus: Code(s): M32.9 - Systemic lupus erythematosus, unspecified Category: Medical Qualifiers: Systemic lupus erythematosus type: unspecified Systemic lupus erythematosus organ involvement: unspecified Qualified Code(s): M32.9 - Systemic lupus erythematosus, unspecified Plan: Patient's lupus remains dormant and per rheumatology, no intervention is indicated at present? Follow-up with rheumatology (Dr. Oliver in [place]) as scheduled Patient continues to work remotely from home, which she states has helped her a lot in keeping her symptoms manageable (2) Acquired hypothyroidism: Code(s): E03.9 - Hypothyroidism, unspecified Category: Medical Plan: Her most recent TFTs done back in September 2024 came out normal Continue Levothyroxine 50 mcg QD We will recheck her labs as well as her TFTs in 2-3 months for follow-up (3) Pure hypercholesterolemia: Code(s): E78.00 - Pure hypercholesterolemia, unspecified Category: Medical Plan: Patient's cholesterol levels were at or near goal when they were last checked in September 2024 Reinforced low cholesterol diet Will recheck her labs and fasting lipids in about 3 months for follow up (4) Irritable bowel syndrome (IBS): Comment: Several loose stools daily abdominal cramping-diagnosed IBS however needs further evaluation to rule out underlying causes to include IBD. 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) - patient states that his symptoms have been mostly manageable for the past couple of years now and she prefers not to take any other medications at this time Patient is again reminded that her diet and emotional state (anxiety) can have a lot to do with her symptoms Work ups done for celiac disease in the past came out negative Follow up with GI as scheduled (5) Vitamin D deficiency: Code(s): E55.9 - Vitamin D deficiency, unspecified Category: Medical Plan: Continue OTC Vitamin D3 2000 units QD (6) Attention deficit hyperactivity disorder (ADHD): Code(s): F90.9 - Attention-deficit hyperactivity disorder, unspecified type Category: Medical Qualifiers: Attention deficit-hyperactivity disorder type: combined inattentive- hyperactive Qualified Code(s): F90.2 - Attention-deficit hyperactivity disorder, combined type Plan: Patient is now seeing a psychiatric provider in [place] and is on Dextroamphetamine-Amphetamine ER (Adderall) 20 mg Q AM for her ADHD and states that she is doing well on her current dose This all started a while back when patient reportedly noticed some improvement in her concentration when she was taking Phentermine for weight loss and then recalls being diagnosed with ADD or ADHD when she was younger and she was subsequently referred to psychiatry for evaluation for ADD/ADHD (7) Anxiety and depression: Code(s): F41.9 - Anxiety disorder, unspecified; F32.A - Depression, unspecified Category: Medical Plan: Patient asked to be started back on her Bupropion 200 mg QD back in May 2023 due to increasing anxiety and depression at the time She eventually weaned herself off her Rx again when she started feeling better Follow up with psychiatry as scheduled (8) Overweight (BMI 25.0-29.9): Comment: S/P gastric sleeve by Dr. Tran in 2018 Code(s): E66.3 - Overweight Category: Medical Plan: Reinforced diet/exercise as tolerated/lose weight She was taking Phentermine and Topiramate for weight loss in the past but stopped taking these when she was started by her psychiatrist on Adderall for her ADHD late last year (2023) She is requesting today if she can be started back on her weight loss medications to help her try to lose some weight again she states that she felt a lot better when her weight was done in the 150 pounds range Will go ahead and try her on Phentermine-Topiramate ER combination at 7.5-46 mg QD Plan To return as scheduled in July 2025 for her annual physical examination Patient is again reminded to get her labs done just before coming in for her physical in July 2025 Orders: Orders Complete Blood Count Auto Diff 08/06/25 D64.9 - Anemia, unspecified, Z00.00 - Encounter for general adult medical examination without abnormal findings Comprehensive [place]. Panel Fast 08/06/25 E78.00 - Pure hypercholesterolemia, unspecified, Z00.00 - Encounter for general adult medical examination without abnormal findings UA CC w/rflx Micro + Cult 08/06/25 R30.0 - Dysuria, Z00.00 - Encounter for general adult medical examination without abnormal findings Vitamin D 25-OH Total 08/06/25 E55.9 - Vitamin D deficiency, unspecified, Z00.00 - Encounter for general adult medical examination without abnormal findings Lipid Panel 08/06/25 E78.00 - Pure hypercholesterolemia, unspecified, Z00.00 - Encounter for general adult medical examination without abnormal findings TSH reflex Free T4 08/06/25 E78.00 - Pure hypercholesterolemia, unspecified, Z00.00 - Encounter for general adult medical examination without abnormal findings Medications: New phentermine-topiramate 7.5-46 mg ER 1 cap PO DAILY 30 caps 0RF 30 days
[2025-05-03 17:22] VITALS: BP 110/78
--- OUTSIDE RECORDS SUMMARY | 2025-05-03 18:16 | XMS_ITS | Clinical Summary ---
Author Organization [facility] ity Address [address] [place] [address] Care Team Providers Care Neonatal Specialist Name Role Phone Unavailable Primary Care Provider [...] Cervical Cancer Screening: P ap Smear 2002 Depression Screening 08/25/2024 COVID-19 Vaccine (1 - 2023-2 5 season) 2025 Influenza Vaccine (#1) 2025 HIB Vaccines Aged [...]
--- OUTSIDE RECORDS SUMMARY | 2025-05-03 18:16 | XMS_ITS | Clinical Summary ---
Author Organization [facility] Address [address] [place] [id number] Phone Care Team Providers Care Crm Marketing Specialist Name Role Phone Ron Irving MD Primary Care Provider [phone] Allergies No known active allergies Social History [...] file Medical Devices Not on file Insurance [facility] OUT OF STATE PPO HEALTH SAFETY NET PARTIAL CROSS OUT [facility] PPO HEALTH SAFETY NET PARTIAL BLUE CROSS OUT OF STATE PPO HEALTH SAFETY NET PART[place] [address] [address] [place] [address] OUT OF [facility] PPO Member Subscriber Plan / Payer ( fective 2012-Present) Name:Pat Russ Relation to Subscriber:Self Name:Pat Russ Payer ID:[id number] ([facility]) Group ID:[id number] Type:PPO Address: [address] NET PARTIAL BLUE CROSS OUT OF STATE PPO HEALTH SAFETY NET [place] [address] [place] [address] OUT OF [facility] PPO HEALTH SAFETY NET PARTIAL CROSS OUT OF STATE PPO [employer] SAFETY NET PARTIAL OUT [facility] PPO [employer] SAFETY [place] [address] [place] [address] [place] [address] [place] [address] SAFETY NET PARTIAL Care Teams Crm Marketing Specialist Relationship Specialty Start Date End Date Ron Irving MD [address] [place] [address] [place] [address] PCP - General Internal Medicine 11/22/14 Additional Source Comments The information contained in this document represents components of the legal health record. It is not the complete legal health record.[facility]
== END 2025-05-03 17:44 | disposition home or self-care (01) ==
LOC: HO.HMCH 16:52
PROVIDERS: PCP Internal Medicine; Visit Provider Internal Medicine
DX: M32.9 Systemic lupus erythematosus, unspecified (principal); E03.9 Hypothyroidism, unspecified; E78.00 Pure hypercholesterolemia, unspecified; K58.9 Irritable bowel syndrome, unspecified; E55.9 Vitamin D deficiency, unspecified; F90.2 Attention-deficit hyperactivity disorder, combined type; F41.9 Anxiety disorder, unspecified; F32.A Depression, unspecified; E66.3 Overweight

== ENCOUNTER → 2025-05-03 16:51 | Outpatient (BNVA) | payer BC, SELFPAY | PROVIDERS: PCP Internal Medicine; Visit Provider Internal Medicine | DX: F90.2 Attention-deficit hyperactivity disorder, combined type (principal); M32.9 Systemic lupus erythematosus, unspecified; E03.9 Hypothyroidism, unspecified; E78.00 Pure hypercholesterolemia, unspecified; K58.9 Irritable bowel syndrome, unspecified; E55.9 Vitamin D deficiency, unspecified; F41.9 Anxiety disorder, unspecified; F32.A Depression, unspecified; E66.3 Overweight; Z68.25 Body mass index [BMI] 25.0-25.9, adult | CPT/HCPCS: 96127 ==

== ENCOUNTER 2025-07-01 16:16 | Outpatient (REF) | payer BC, SELFPAY ==
--- OUTSIDE RECORDS SUMMARY | 2025-07-01 16:51 | XMS_ITS | Clinical Summary ---
Author Organization [facility] ity Address [address] [place] [address] Care Team Providers Care Instrument Shop Supervisor Name Role Phone Unavailable Primary Care [...] Cervical Cancer Screening: P ap Smear 2002 HPV Vaccines (1 - 3-dose SCD M series) 2008 Depression Screening 08/25/2024 COVID-19 Vaccine ( - 2023-2 5 season) 2025 Influenza Vaccine (#1) 2025 RSV Immunization Adult Patie nts (1 - 1-dose 75+ series) 2056 HIB Vaccines Aged Out No longer eligi [...]
--- OUTSIDE RECORDS SUMMARY | 2025-07-01 16:51 | XMS_ITS | Clinical Summary ---
Author Organization [facility] Address [address] [place] [phone] Phone Care Team Providers Care Analysis Director Name Role Phone Ron Irving MD Primary Care Provider [phone] Allergies No known active allergies Social History [...] file Medical Devices Not on file Insurance [facility] OUT OF STATE PPO HEALTH SAFETY NET PARTIAL CROSS OUT [facility] PPO HEALTH SAFETY NET PARTIAL BLUE CROSS OUT OF STATE PPO HEALTH SAFETY [place] [address] [address] [place] [address] OUT OF [facility] PPO Member Subscriber Plan / Payer ( fective 2012-Present) Name:Pat Russ Relation to Subscriber:Self Name:Pat Russ Payer ID:[id number] ([facility]) Group ID:[id number] Type:PPO Address: [address] NET PARTIAL BLUE CROSS OUT OF STATE PPO HEALTH SAFETY [place] [address] [place] [address] OUT OF [facility] PPO HEALTH SAFETY NET PARTIAL CROSS OUT OF STATE PPO [employer] SAFETY NET PARTIAL OUT [facility] PPO [employer] [place]AF[place] [address] [place] [address] [address] [place] [address] [address] SAFETY NET PARTIAL Care Teams Analysis Director Relationship Specialty Start Date End Date Ron Irving MD [address] [place] [address] [place] [address] PCP - General Internal Medicine 11/22/14 Additional Source Comments The information contained in this document represents components of the legal health record. It is not the complete legal health record.[facility]
== END 2025-07-01 16:17 | disposition home or self-care (01) ==
LOC: HO.MAMMO 16:16
PROVIDERS: PCP Internal Medicine; Visit Provider Internal Medicine
DX: Z12.31 Encounter for screening mammogram for malignant neoplasm of breast (principal)
CPT/HCPCS: 77063; 77067

== ENCOUNTER → 2025-07-01 16:30 | Outpatient (BNV) | payer BC, SELFPAY | PROVIDERS: PCP Internal Medicine; Visit Provider Internal Medicine | DX: Z12.31 Encounter for screening mammogram for malignant neoplasm of breast (principal) | CPT/HCPCS: 77063; 77067 ==

== ENCOUNTER 2025-08-15 17:24 | Outpatient (AMB) | payer BC, SELFPAY ==
--- NOTE | 2025-08-15 17:27 | MHC.PC.OV ---
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 Required: No Accompanied by: self Allergies adhesive tape (ADHESIVE TAPE) Allergy (Severe, Verified 08/15/25 17:48) HIVES latex Allergy (Severe, Verified 08/15/25 17:48) throat swelling/hives prednisone Adverse Reaction (Severe, Verified 08/15/25 17:48) psychosis, extreme aggitation pumpkin Adverse Reaction (Unknown, Verified 08/15/25 17:48) unknown Medication List - Last Reconciled 08/15/25 by Ron Irving MD dextroamphetamine-amphetamine 25 mg ER 1 cap PO QAM levothyroxine 50 mcg PO DAILY 90 days Tobacco use date assessed: 05/03/25 Dental Screening Dental Screen Date: 05/03/25 HPI physical HPI Details Patient is a 45 year old female who comes in today for her annual physical examination States that she has been experiencing symptoms of increased fatigue, malaise and body aches (states that she feels exhausted) since yesterday at 2 p.m. She reports running a fever of 102.1?F last night and felt like she was freezing to . Notes that her cough initially felt like razor blades in her chest and has been productive of green sputum. She denies any trouble breathing, sore throat, nausea, and diarrhea but reports feeling chest tightness when lying down, which improves when she is up and moving. A home COVID-19 test done came out negative and she reports having received a flu shot this season. She denies any headaches or dizziness or exertional chest pains Regarding her health maintenance, her mammogram last month was normal, and she is up to date on her Pap smears. She was previously taking a weight loss medication for about a month but stopped because it caused insomnia, even at a half dose. [facility] Medical History (Updated 08/22/25 @ 01:00 by Ron Irving MD) Otitis BRCA1 positive Attention deficit hyperactivity disorder (ADHD) Anxiety and depression Elevated bilirubin Overweight (BMI 25.0-29.9) Irritable bowel syndrome (IBS) Mass of right inguinal region Sleep disorder Depression Vitamin D deficiency Pure hypercholesterolemia Acquired hypothyroidism Systemic lupus erythematosus Surgical History H/O colonoscopy History of pleomorphic adenoma of salivary gland History of sleeve gastrectomy History of laparoscopic cholecystectomy History of section Family History Father Hypertension Pancreatic cancer Mother Medical history unknown Paternal Grandmother Cancer Paternal Uncle Cancer Social History Housing: House Alcohol intake: never Patient Tobacco Use Status: Former Tobacco user Tobacco use type: Cigarette e-Cigarette/Vaping Use: Currently Using Second Hand Smoke Exposure: No service: No Current occupational status: employed Current occupational exposures/hazards: No Cognitive needs: No Hearing needs: No Vision needs: No Female Reproductive History Menstrual Age of Menarche: 15 Questionnaire Thrive Questionnaire Date Thrive assessed: 04/26/25 I am a: Patient What is your living situation today?: I have a steady place to live Within the past 12 months, did the food you bought not last and you didn't have the money to get more?: Often true Within the past 12 months, did you worry whether your food would run out before you got money to buy more?: Sometimes True Do you have trouble paying for medicines?: No Do you have trouble getting transportation to medical appointments?: No Do you have trouble paying your heating and electricity bill?: No Do you have trouble taking care of your child, family member or friend?: No Do you have trouble with day-to-day activities such as bathing, preparing meals, shopping, managing finances, etc.?: No Are you currently unemployed and looking for a job?: No Are you interested in more education?: No Currently or been in a relationship where the following occur: I choose not to answer THRIVE Score: 2 MONSERRAT-7 AMB Questionnaire MONSERRAT-7 Date MONSERRAT - 7 assessed: 05/03/25 Source: Developed by Drs. Channing Zapata, Hina Clayton, Noe Molina and colleagues, with an educational antoine from [employer]. Review of Systems Const Reports as per HPI, Reports body aches, Reports chills, Reports fatigue, Reports fever(s), Denies headache(s) and Reports malaise Eyes Denies blurry vision, Denies change in vision, Denies irritation and Denies itchy eyes ENT Denies dysphagia, Denies dizziness, Denies otalgia, Denies headache(s), Reports nasal congestion, Denies neck pain, Denies odynophagia, Denies sinus pain and Denies sore throat Card Denies chest pain, Denies rapid heart rate, Denies irregular heart rhythm, Denies palpitations and Denies dyspnea Resp Reports as per HPI, Reports chest congestion, Reports cough, Denies dyspnea and Denies wheezing GI Denies abdominal pain, Denies bloating, Denies constipation, Denies dysphagia, Denies heartburn, Denies diarrhea, Denies nausea, Denies odynophagia and Denies vomiting Denies hematuria, Denies difficulty voiding, Denies dysuria, Denies urinary incontinence and Denies urinary urgency Musc Denies back pain, Reports arthralgias (on and off), Denies joint swelling, Denies muscle weakness and Denies neck pain Skin/Breast Denies breast pain, Denies breast mass, Denies change in pigmentation, Denies lesions, Denies rash and Denies unusual bruising Neuro Denies dizziness, Denies headache(s) and Denies paresthesias Psych Denies anxiety and Denies depression Endo Reports fatigue and Denies palpitations Arron/Lymph Denies easy bruising Aller/Immun Denies itchy eyes and Denies wheezing Physical exam (Primary Care) Vital Signs: Last Vital Signs Temp 97.5 F 08/15/25 17:29 Pulse 88 08/15/25 17:29 BP 104/66 08/15/25 17:29 Pulse Ox 99 08/15/25 17:29 Oxygen Delivery Method Room Air 08/15/25 17:29 BMI result Body Mass Index 25.7 Tobacco/Smoking Status: Tobacco use Status Tobacco use date assessed 05/03/25 08/15/25 17:34 Patient Tobacco Use Status Former Tobacco user 08/15/25 17:34 Tobacco use type Cigarette 08/15/25 17:34 e-Cigarette/Vaping Use Currently Using 08/15/25 17:34 Thrive Assessment: Date of Thrive Assessment Date Thrive assessed 04/26/25 08/15/25 17:34 Currently or been in a relationship where the following occur: I choose not to answer Const General: no acute distress, alert and awake Orientation/consciousness: patient oriented x3 HENMT Head: Yes normocephalic and Yes atraumatic Ears: external ears normal, TM's normal bilaterally and EAC's normal General nose exam: No nasal discharge present Face and sinus: Yes normal facial exam and Yes sinuses nontender Teeth and gingiva: dentition normal Throat: Yes posterior oropharynx normal and Yes tonsils normal (no TP congestion) Eyes Eyelids: Yes eyelids normal Conjunctivae: conjunctivae normal Pupils: Equal, round and reactive pupils present EOM: EOMs intact bilaterally Neck Neck: Yes no lymphadenopathy and Yes supple Thyroid: Thyroid normal Resp Auscultation: clear to auscultation bilaterally, no rales and no wheezes Cardio Rate: regular rate Rhythm: regular rhythm Heart sounds: no murmurs GI Palpation (GI): Soft to palpation, nontender and No hepatosplenomegaly present Auscultation: normal bowel sounds General: Yes no CVA tenderness Back/Spine/Pelvis Back: no CVA tenderness Thoracic/Lumbar Spine: thoracic and lumbar spine normal to inspection Skin Lesions: no lesions Rashes: no rashes Neuro General: patient oriented x3, moves all extremities, no focal motor deficits and CN's II-XI intact bilaterally Cranial nerves: Yes Equal, round and reactive pupils present Cognition (Neuro): normal cognition Gait exam (Neuro): Normal gait present Extrem General: Yes no clubbing, cyanosis or edema Coding Level of Care Code Est Pt Prev Care 40-64y(09554) Diagnoses Annual physical exam Z00.00 Respiratory tract infection J98.8 Systemic lupus erythematosus, unspecified SLE type, unspecified organ involvement status M32.9 Systemic lupus erythematosus type: unspecified Systemic lupus erythematosus organ involvement: unspecified Acquired hypothyroidism E03.9 Pure hypercholesterolemia E78.00 Irritable bowel syndrome, unspecified type K58.9 Irritable bowel syndrome type: unspecified Vitamin D deficiency E55.9 Attention deficit hyperactivity disorder (ADHD), combined type F90.2 Attention deficit-hyperactivity disorder type: combined inattentive-hyperactive Anxiety and depression F41.9; F32.A Overweight (BMI 25.0-29.9) E66.3 Assessment & Plan Assessment & Plan (1) Annual physical exam: Code(s): Z00.00 - Encounter for general adult medical examination without abnormal findings Category: Medical Plan: Check labs SINGH to complete her annual exam today Patient's mammogram last month was normal, and she is up to date on her Pap smear and yearly gynecology exam. (2) Respiratory tract infection: Code(s): J98.8 - Other specified respiratory disorders Category: Medical Plan: Likely viral in etiology Will have patient get tested for viral respiratory panel as well when she goes for her routine labs SINGH Have advised patient to just continue symptomatic Tx for now with OTC cough/cold meds PRN and that she will be treated with the appropriate medication accordingly if her viral panel comes back positive (3) Systemic lupus erythematosus: Code(s): M32.9 - Systemic lupus erythematosus, unspecified Category: Medical Qualifiers: Systemic lupus erythematosus type: unspecified Systemic lupus erythematosus organ involvement: unspecified Qualified Code(s): M32.9 - Systemic lupus erythematosus, unspecified Plan: Patient's lupus remains dormant and per rheumatology, no intervention is indicated at present? Follow-up with rheumatology (Dr. Oliver in [place]) as scheduled Patient continues to work remotely from home, which she states has helped a lot in keeping her symptoms manageable (4) Acquired hypothyroidism: Code(s): E03.9 - Hypothyroidism, unspecified Category: Medical Plan: Her most recent TFTs done back in September 2024 came out normal Continue Levothyroxine 50 mcg QD We will recheck her labs as well as her TFTs SINGH for follow-up (5) Pure hypercholesterolemia: Code(s): E78.00 - Pure hypercholesterolemia, unspecified Category: Medical Plan: Patient's cholesterol levels were at or near goal when they were last checked in September 2024 Reinforced low cholesterol diet Will recheck her labs and fasting lipids for follow up (6) Irritable bowel syndrome (IBS): Comment: Several loose stools daily abdominal cramping-diagnosed IBS however needs further evaluation to rule out underlying causes to include IBD. 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) - patient states that his symptoms have been mostly manageable for the past couple of years now and she prefers not to take any other medications at this time Patient is again reminded that her diet and emotional state (anxiety) can have a lot to do with her symptoms Work ups done for celiac disease in the past came out negative Follow up with GI as scheduled (7) Vitamin D deficiency: Code(s): E55.9 - Vitamin D deficiency, unspecified Category: Medical Plan: Continue OTC Vitamin D3 2000 units QD (8) Attention deficit hyperactivity disorder (ADHD): Code(s): F90.9 - Attention-deficit hyperactivity disorder, unspecified type Category: Medical Qualifiers: Attention deficit-hyperactivity disorder type: combined inattentive-hyperactive Qualified Code(s): F90.2 - Attention-deficit hyperactivity disorder, combined type Plan: Patient is now seeing a psychiatric provider in [place] and is on Dextroamphetamine-Amphetamine ER (Adderall) 20 mg Q AM for her ADHD and states that she is doing well on her current dose This all started a while back when patient reportedly noticed some improvement in her concentration when she was taking Phentermine for weight loss and then recalls being diagnosed with ADD or ADHD when she was younger and she was subsequently referred to psychiatry for evaluation for ADD/ADHD (9) Anxiety and depression: Code(s): F41.9 - Anxiety disorder, unspecified; F32.A - Depression, unspecified Category: Medical Plan: Patient asked to be started back on her Bupropion 200 mg QD back in May 2023 due to increasing anxiety and depression at the time She eventually weaned herself off her Rx again when she started feeling better Follow up with psychiatry as scheduled (10) Overweight (BMI 25.0-29.9): Comment: S/P gastric sleeve by Dr. Tran in 2018 Code(s): E66.3 - Overweight Category: Medical Plan: Reinforced diet/exercise as tolerated/lose weight She was taking Phentermine and Topiramate for weight loss in the past but stopped taking these when she was started by her psychiatrist on Adderall for her ADHD late last year (2023) Plan Follow up in 6 months Orders: Orders Complete Blood Count Auto Diff 08/16/25 D64.9 - Anemia, unspecified, Z00.00 - Encounter for general adult medical examination without abnormal findings Comprehensive [place]. Panel Fast 08/16/25 E78.00 - Pure hypercholesterolemia, unspecified, Z00.00 - Encounter for general adult medical examination without abnormal findings Lipid Panel 08/16/25 E78.00 - Pure hypercholesterolemia, unspecified, Z00.00 - Encounter for general adult medical examination without abnormal findings Thyroid Stimulating Hormone 08/16/25 E03.9 - Hypothyroidism, unspecified, Z00.00 - Encounter for general adult medical examination without abnormal findings Free T4 (Free Thyroxine) 08/16/25 E03.9 - Hypothyroidism, unspecified, Z00.00 - Encounter for general adult medical examination without abnormal findings Vitamin D 25-OH Total 08/16/25 E55.9 - Vitamin D deficiency, unspecified, Z00.00 - Encounter for general adult medical examination without abnormal findings UA CC w/rflx Micro + Cult 08/16/25 R30.0 - Dysuria, Z00.00 - Encounter for general adult medical examination without abnormal findings SARS-CoV2/FLU/RSV 08/16/25 J98.8 - Other specified respiratory disorders
[2025-08-15 17:29] VITALS: BP 104/66; PULSE 88; TEMP 36.4; O2SAT 99; BMI 25.7
--- OUTSIDE RECORDS SUMMARY | 2025-08-15 19:00 | XMS_ITS | Clinical Summary ---
Author Organization [facility] ity Address [address] [place] [address] Care Team Providers Care Rn Staffing Name Role Phone Unavailable Primary Care Provider [...] series) 2008 Depression Screening 08/25/2024 COVID-19 Vaccine (1 - 2024-2 6 season) 2025 Influenza Vaccine (#1) 2025 RSV [...]
--- OUTSIDE RECORDS SUMMARY | 2025-08-15 19:00 | XMS_ITS | Clinical Summary ---
Author Organization [facility] Address [address] [place] [address] Phone Care Team Providers Care Sociology Instructor Name Role Phone Ron Irving MD Primary Care Provider [phone] Allergies No known active allergies Social History [...] file Medical Devices Not on file Insurance [facility] OUT OF STATE PPO HEALTH SAFETY NET PARTIAL BLUE CROSS OUT OF STATE PPO HEALTH SAFETY NET PARTIAL CROSS OUT OF STATE PPO HEALTH SAFETY [place] [address] [place] [address] OUT OF [facility] PPO Member Subscriber Plan / Payer ( fective 2012-Present) Name:Pat Russ Relation to Subscriber:Self Name:Pat Russ Payer ID:[id number] ([facility]) Group ID:[id number] Type:PPO Address: [address] SAFETY NET PARTIAL BLUE CROSS OUT OF STATE PPO HEALTH SAFETY NET PARTIAL BLUE CROSS OUT OF STATE PPO HEALTH SAFETY NET PARTIAL CROSS OUT OF STATE PPO [employer] SAFETY NET PARTIAL OUT [facility] PPO [employer] SAF[place] [address] [place] [address] OUT OF STATE PPO [facility] SAFETY NET PARTIAL Care Teams Sociology Instructor Relationship Specialty Start Date End Date Ron Irving MD [address] [place] [address] [place] [address] PCP - General Internal Medicine 11/22/14 Additional Source Comments The information contained in this document represents components of the legal health record. It is not the complete legal health record.[facility]
== END 2025-08-15 18:01 | disposition home or self-care (01) ==
LOC: HO.HMCH 17:25
PROVIDERS: PCP Internal Medicine; Visit Provider Internal Medicine
DX: Z00.00 Encounter for general adult medical examination without abnormal findings (principal); J98.8 Other specified respiratory disorders; M32.9 Systemic lupus erythematosus, unspecified; E03.9 Hypothyroidism, unspecified; E78.00 Pure hypercholesterolemia, unspecified; K58.9 Irritable bowel syndrome, unspecified; E55.9 Vitamin D deficiency, unspecified; F90.2 Attention-deficit hyperactivity disorder, combined type; F41.9 Anxiety disorder, unspecified; F32.A Depression, unspecified; E66.3 Overweight

== ENCOUNTER 2025-08-16 06:22 | Outpatient (REF) | payer BC, SELFPAY ==
--- OUTSIDE RECORDS SUMMARY | 2025-08-16 06:24 | XMS_ITS | Clinical Summary ---
Author Organization [facility] ity Address [address] [place] [address] Care Team Providers Care Hold Worker Name Role Phone Unavailable Primary Care Provider [...]
--- OUTSIDE RECORDS SUMMARY | 2025-08-16 06:24 | XMS_ITS | Clinical Summary ---
Author Organization [facility] Address [address] [place] [address] Phone Care Team Providers Care Rn Recruitment Name Role Phone Ron Irving MD Primary Care Provider [phone] Allergies No known active allergies Social History [...] Devices Not on file Insurance [facility] OUT OF STATE PPO HEALTH SAFETY NET PARTIAL BLUE CROSS OUT OF STATE PPO HEALTH SAFETY NET PARTIAL CROSS OUT OF STATE PPO HEALTH SAFETY NET [place] [address] OUT OF [facility] PPO Member Subscriber Plan / Payer ( fective 2012-Present) Name:Pat Russ Relation to Subscriber:Self Name:Pat Russ Payer ID:[id number] ([facility]) Group ID:[id number] Type:PPO Address: [address] SAFETY NET PARTIAL BLUE CROSS OUT OF STATE PPO HEALTH SAFETY NET PARTIAL Member Subscriber Plan / Payer (Ef fective 2014-Present) Name:Pat Russ Relation to Subscriber:Self Name:CamasPat stephen Payer ID:Not on file Group ID:Not on file Type:Medicaid Address: [address] [id number] BLUE CROSS OUT OF STATE PPO HEALTH SAFETY NET PARTIAL CROSS OUT OF STATE PPO [employer] SAFETY NET PARTIAL OUT [facility] PPO [employer] SAFETY NET PARTIAL Member Subscriber Plan / Payer (Ef fective 2014-Present) Name:Pat Russ Relation to Subscriber:Self Name:Camas, Pat Payer ID:Not on file Group ID:Not on file Type:Medicaid Address: [address] [place] [address] OUT OF STATE PPO [facility] SAFETY NET PARTIAL Care Teams Rn Recruitment Relationship Specialty Start Date End Date Ron Irving MD [address] [place] [address] [place] [address] PCP - General Internal Medicine 11/22/14 Additional Source Comments The information contained in this document represents components of the legal health record. It is not the complete legal health record.[facility]
[2025-08-16 06:34] LABS: MANUAL DIFF FLAG NO
[2025-08-16 07:13] LABS: Hematocrit 40.6 % (37.0-47.0); Hemoglobin 13.3 g/dl (12.0-16.0); Imm Gran Abs Auto 0.01 X10*3/uL (0.00-0.03); Imm Gran Pct Auto 0.2 % (0.0-0.4); Lymphocytes Absolute Auto 1.3 X10*3/uL (1.2-4.9); Mean Corpuscular HGB Conc 32.8 g/dl (31.0-35.0); Mean Corpuscular Hemoglobin 29.3 pg (27.0-33.0); Mean Corpuscular Volume 89.4 fL (80.0-98.0); NRBC Abs Auto 0.000 X10*3/uL (0.0-0.012); NRBC Pct Auto 0.0 /100WBC (0.0-0.2); Platelet Count 244 X10*3/uL (160-400); Red Blood Count 4.54 X10*6/uL (4.20-5.50); White Blood Count 4.8 X10*3/uL (4.8-10.8)
[2025-08-16 07:19] LABS: Resp Syncy Virus RNA Qual PCR NEGATIVE (Negative); SARS COV2 PCR INHOUSE NEGATIVE (Negative)
[2025-08-16 07:38] LABS: Appearance Urine Clear; Glucose Urine UA Negative (Negative); PH 5.5 (5.0-9.0); Specific Gravity - Urine 1.025 (1.005-1.025); UMIC TRIGGER UACC YES
[2025-08-16 07:48] LABS: Alanine Aminotransferase 16 U/L (0-31); Albumin Level 4.2 g/dL (3.5-5.0); Alkaline Phosphatase 43 U/L (39-117); Anion Gap 9 (12-20); Aspartate Amino Transferase 22 U/L (5-31); Blood Urea Nitrogen 12 mg/dL (9-16); Calcium 8.7 mg/dL (8.4-10.2); Carbon Dioxide 28 mmol/L (22-29); Chloride 108 mmol/L (96-108); Cholesterol 163 mg/dL (<200); Estimated Glomerular Filt Rate > 60; HDL Cholesterol 72 mg/dL (>40); Potassium 3.9 mmol/L (3.3-5.1); Sodium 141 mmol/L (135-145); Total Protein 6.7 g/dL (6.5-8.0); Triglycerides 54 mg/dL (<150)
[2025-08-16 07:58] LABS: Free T4 (Free Thyroxine) 1.07 ng/dL (0.71-1.85); Thyroid Stimulating Hormone 0.66 uIU/mL (0.32-4.0)
== END 2025-08-16 06:23 | disposition home or self-care (01) ==
LOC: HO.LAB 06:22
PROVIDERS: PCP Internal Medicine; Visit Provider Internal Medicine
DX: Z00.00 Encounter for general adult medical examination without abnormal findings (principal); J98.8 Other specified respiratory disorders; E03.9 Hypothyroidism, unspecified; D64.9 Anemia, unspecified; E78.00 Pure hypercholesterolemia, unspecified; E55.9 Vitamin D deficiency, unspecified; R30.0 Dysuria
CPT/HCPCS: 80053; 80061; 81001; 82306; 84439; 84443; 85025; 87637